=== PATIENT | female | born 1950 | race African-American/Black ===

== ENCOUNTER 2022-07-15 08:36 | Inpatient (IN) | payer BC ==
[2022-07-15] VITALS (12 sets, daily range): BP systolic 73–174; BP diastolic 45–71
[~2022-07-15] VITALS: Ht 162.6 cm; Wt 82.1 kg
--- NOTE | 2022-07-15 08:48 | NUR ---
REVIEWED PATIENT STATUS WITH DR. RUFUS BRADEN; CONSENUS TO PLACED PATIENT ON BIPAP TO MASK WITH SETTINGS NOTED; ABG AT OR AFTER 1 HOUR
[2022-07-15] MEDS ORDERED: FUROSEMIDE 40 MG/4 ML VIAL IVP ONE (09:00)
--- NOTE | 2022-07-15 09:23 | NUR ---
SWABS COLLECTED AND WALKED TO LAB.
--- NOTE | 2022-07-15 09:30 | NUR ---
# 16 FR Stephenson catheter with 10 ml utilizing sterile technique. Immediate return of 0 ml urine NOTED. Bedside drainage bag placed below level of bladder. Pt tolerated procedure well. Dr Watkins made aware.
[2022-07-15 09:33] LABS: BASOPHILS % (AUTO) 0.4 % (0.0-2.0); HEMATOCRIT 32.2 % (36-48); HEMOGLOBIN 10.6 g/dL (12.0-16.0); LYMPHOCYTES # (AUTO) 0.3 K/uL (2.5-16.5); MEAN CORPUSCULAR HEMOGLOBIN 30 pg (27-31); MEAN CORPUSCULAR HGB CONC 33 g/dL (33-37); MEAN CORPUSCULAR VOLUME 91.9 fL (80-94); MONOCYTES # (AUTO) 0.6 K/uL (0.8-1.0); MONOCYTES % (AUTO) 7.3 % (1.7-9.3); NEUTROPHILS # (AUTO) 7.9 K/uL (1.8-7.7); PLATELET COUNT (AUTO) 51 K/uL (140-450); RED CELL DISTRIBUTION WIDTH 18.1 % (11.6-13.7); WHITE BLOOD COUNT (AUTO) 8.9 K/uL (4.8-10.8)
[2022-07-15] MEDS ORDERED: NOREPINEPHRINE 4 MG/4 ML VIAL IV ONE (09:33)
--- NOTE | 2022-07-15 09:44 | NUR ---
72F ADAMA FROM [facility] EXTENDED CARE FOR ALOC X2DAYS. PER EMS, STAFF NOTED PT HAD INCREASED ALOC AND SOB THIS MORNING. ON ARRIVAL, LABORED BREATHING, GENERALIZED EDEMA +3 NOTED UPON ASSESSMENT. PT DIFFICULT TO AROUSE. PT PLACED ON BEDSIDE VEGETABLE SPECKER. DR BRADEN AND RT NOTIFIED OF PT'S PRESENTATION.
[2022-07-15 09:45] LABS: LYMPHOCYTES % (AUTO) 3.1 % (20.5-51.1); NEUTROPHILS % (AUTO) 89.2 % (42.2-75.2)
[2022-07-15] MEDS ORDERED: NACL 0.9% 500 ML IV ONE ×2 (09:45→11:00)
[2022-07-15 09:52] LABS: ALBUMIN 2.7 g/dL (3.4-5.0); ANION GAP 20.5 (8-16); ASPARTATE AMINOTRANSFERASE 42 U/L (15-37); CARBON DIOXIDE 20.9 mmol/L (21-32); CHLORIDE 113 mmol/L (98-107); CREATININE 3.5 mg/dL (0.6-1.3); GLUCOSE 176 mg/dL (74-106); POTASSIUM 5.4 mmol/L (3.5-5.1); SODIUM SERUM 149 mmol/L (136-145); TOTAL BILIRUBIN 1.2 mg/dL (0.0-1.0)
[2022-07-15 09:54] LABS: LIPASE 208 U/L (73-393)
[2022-07-15 09:59] LABS: UREA NITROGEN, BLOOD 109 mg/dL (7-18)
[2022-07-15] MEDS ORDERED: cefTRIAXone 1,000 MG VIAL ONE (10:04)
[2022-07-15] MEDS ORDERED: CALCIUM CHLORIDE 10% 100 MG/ML SYR IVP ONE (10:10)
--- NOTE | 2022-07-15 10:17 | NUR ---
0ML OF URINE OUTPUT NOTED IN NEGRETE BAG. MADE AWARE. PT ON BI PAP REPOSITION FOR COMFORT.
[2022-07-15] MEDS ORDERED: INTUBATION KIT MC ONE (10:26)
[2022-07-15] MEDS ORDERED: ROCURONIUM 50 MG/5 ML VIAL IV ONE (10:30)
[2022-07-15] MEDS ORDERED: ETOMIDATE 20 MG/10 ML VIAL IVP ONE (10:30)
[2022-07-15] MEDS ORDERED: SODIUM BICARBONATE 8.4% PFS 50 MEQ/50 ML SYR IVP ONE (10:30)
[2022-07-15] MEDS ORDERED: PROPOFOL 1000 MG/100 ML PREMIX 100 ML IV ONE (10:30)
--- NOTE | 2022-07-15 10:30 | NUR ---
Radha JONES RCP AND Ruth DICKERSON RCP CALLED TO ER-10 BEDSIDE FOR PATIENT INTUBATION
--- NOTE | 2022-07-15 10:38 | NUR ---
INTUBATION PREP COMPLETED
[2022-07-15] MEDS ORDERED: ATROPINE 1 MG/10 ML SYR IVP ONE ×2 (10:52→12:03)
--- NOTE | 2022-07-15 10:58 | NUR ---
USING A GLIDESCOPE PATIENT SUCCESSFULLY INTUBATED BY DR. RUFUS VILLARREAL; VOCAL CHORDS VISUALIZED; ENDOTRACHEAL TUBE (ETT) #8.0 INSERTED; CUFF INFLATED WITH 8CC AIR VIA 10CC SYRINGE; ETT PLACEMENT CONFIRMATION VIA ETCO2 DETECTOR - YELLOW; AUSCULTATION BY PHIL TO BILATERAL LUNG BANKS APEX TO MID; GOOD CHEST RISE; ETT SECURED AT 21cm TEETH/GUM LINE WITH ANCHOR FAST; CHEST XRAY TO FOLLOW
--- NOTE | 2022-07-15 11:00 | NUR ---
1051-DR BRADEN, MYSELF, KYLE/GAETANO, RT, AT BEDSIDE FOR INTUBATION 1055-ETOMIDATE ADMIN 1055-ROCURONIUM ADMIN 1058-PT INTUBATED. ET TUBE 8.0 AT 23'' AT THE TEETH. + COLOR CHANGE AND BREATH SOUNDS.
--- NOTE | 2022-07-15 11:05 | NUR ---
POST INTUBATION PLACED ON A [employer] R860 VENTILATOR PLUGGED INTO RED OUTLET TOLERATING WELL WITHOUT COMPLICATIONS NOTED TO AN ENDOTRACHEAL TUBE #8.0 SECURED AT 21cm TEETH/GUM LINE WITH AN ANCHOR FAST CUFF PRESSURE CHECKED NOTED AMBU BAG AT BEDSIDE SEDATED GOOD CHEST RISE COUNTRY MANAGER TO OBTAIN SPUTUM FOR VAP PROTOCOL
--- NOTE | 2022-07-15 11:18 | NUR ---
PATIENT UNABLE TO MAINTAIN PEAK PRESSURE LESS THAN 40 cmH2O; NOW AT+[id number]; CHANGED MODE TO PRESSURE CONTROL NOTED; PEAK PRESSURE DESCENDING NOW AT [id number]; ENDOTRACHEAL SUCTION FOR MODERATE THIN BEIGE/HAZY SECRETIONS AIRWAY PATENT
[2022-07-15] MEDS ORDERED: NOREPINEPHRINE 4 MG in DEXTROSE 5% 250 ML IV ONE (11:20)
[2022-07-15] MEDS ORDERED: FURO40TA9 PO (11:33)
[2022-07-15] MEDS ORDERED: CARV25TA2 PO (11:33)
[2022-07-15] MEDS ORDERED: INSU100I51 SUBQ (11:33)
[2022-07-15] MEDS ORDERED: ATOR40TA40 PO (11:33)
[2022-07-15] MEDS ORDERED: POTA10TA81 PO (11:33)
[2022-07-15] MEDS ORDERED: HYDR-4421 PO (11:33)
--- NOTE | 2022-07-15 11:46 | NUR ---
Patient will be admitted to care of Dr. Mccracken. Admited to ICU. Will go to room ICU 1. Belongings list completed. Report to MARCELINO Field.
--- NOTE | 2022-07-15 12:05 | NUR ---
PATIENT ARRIVED FROM ED VIA GURNEY. LEVOPHED INFUSING LEFT AC AT 2MCG/MIN, PROPOFOL AT 5 MCG/KG/MIN LEFT HAND. ATTACHED TO POWER TRUCK DRIVER READING SINUS BRADYCARDIA HR 44-48, BP 141/72 RR 20 SA02 97%, PATIENT NON RESPONSIVE TO PAINFUL STIMULI, PUPILS 2/1 SLUGGISH TO LIGHT, NO COUGH NO GAG REFLEX. SKIN COOL, TEMP 85 DEGREE TEMPORAL ARTERY. APPLIED HEATING BLANKET AFTER COMPLETED BASELINE ASSESSMENT. BASELINE ASSESSMENT COMPLETED.
[2022-07-15] MEDS ORDERED: ATROPINE 0.4 MG/ML VIAL IVP PRN (12:10)
--- NOTE | 2022-07-15 12:30 | NUR ---
RECEIVED ORDERS FROM DR ESTELLE MD AT BEDSIDE EVALUATING PATIENT AFTER PATIENT ARRIVAL FROM ED.
--- NOTE | 2022-07-15 12:35 | NUR ---
STOPPED LEVOPHED AND STOPPED PROPOFOL
--- NOTE | 2022-07-15 13:00 | NUR ---
RECIEVED ORDERS FROM DR CHRISTOPHER, INCLUDING X1 NS BOLUS 1000ML STAT
[2022-07-15] MEDS ORDERED: NACL 0.9% 1,000 ML IV SCH (13:40)
[2022-07-15] MEDS ORDERED: NACL 0.9% 500 ML IV SCH (13:40)
[2022-07-15] MEDS: PIPERACILLIN/TAZOBACTAM 2.25 GM in DEXTROSE 5% 50 ML IV SCH ×2 (13:52→21:38)
--- NOTE | 2022-07-15 13:53 | NUR ---
SEDATED GOOD CHEST RISE ENDOTRACHEAL SUCTION FOR SMALL THIN BEIGE/HAZY SECRETIONS AIRWAY PATENT MANAGER HEAVY DUTY TO OBTAIN HHN THERAPY FOR PULMONARY PATENCY AND MOBILIZATION OF SECRETIONS
--- NOTE | 2022-07-15 14:00 | NUR ---
PATIENT REMAINS NON RESPONSIVE TO PAINFUL STIMULI, NO COUGH, NO GAG, PATIENT MOVES HEAD SLIGHTLY SIDE TO SIDE UPON STIMULI.
[2022-07-15] MEDS ORDERED: SODIUM ZIRCONIUM CYCLOSILICATE 10 GM POWD.PACK PO SCH (14:06)
--- NOTE | 2022-07-15 14:07 | NUR ---
FAMILY AT BEDSIDE, WAITING FOR DAUGHTER TO ARRIVE.
--- NOTE | 2022-07-15 14:10 | NUR ---
DR MCCOY AT BEDSIDE UPDATED FAMILY ON PATIENTS CURRENT CONDITION AND PLAN OF CARE.
--- NOTE | 2022-07-15 15:55 | NUR ---
DR CHRISTOPHER CALLED FOR UPDATE VIA TELEPHONE, REQUESTING ABG STAT, NOTIFIED RT
[2022-07-15] MEDS: ALBUTEROL SULFATE/IPRATROPIU 3 ML SOL IH PRN (16:10)
--- NOTE | 2022-07-15 16:23 | NUR ---
CALLED DR. WU CHRISTOPHER AT [facility] ER PULMONARY [facility] AT TO REVIEW ABG RESULTS VENUS/EXCHANGE TO PAGE FOREMENTIONED MD PATIENT INFORMATION AND CALL BACK NUMBER GIVEN
--- NOTE | 2022-07-15 16:26 | NUR ---
CALL BACK FROM DR. WU CHRISTOPHER REVIEWED ABG RESULTS AND CURRENT VENTILATOR SETTINGS PENNY CHRISTOPHER: PC 28 RATE 18; KEEP SATURATION GREATER THAN 92%; ABG AM 07/16/22 AT 0800 Addendum: 07/15/22 at 1700 by Jakob Hernandez RT ADVISED MD OF ABG SATURATION 89.9% AND MONITOR SATURATION 98%
--- NOTE | 2022-07-15 16:53 | NUR ---
PER PENNY CHRISTOPHER; DECREASED Pinsp 28; DECREASED RATE TO 18 BPM; GOOD CHEST RISE ENDOTRACHEAL SUCTION FOR SMALL THIN YELLOW SECRETIONS AIRWAY PATENT
[2022-07-15] MEDS ORDERED: SODIUM ZIRCONIUM CYCLOSILICATE 10 GM POWD.PACK ONE (18:07)
--- NOTE | 2022-07-15 18:35 | NUR ---
PATIENT AWAKE, UNABLE TO FOLLOW COMMANDS, MOVING HEAD, BITING ETT. STARTING VERSED AND FENTANYL PER MD ORDERS.
[2022-07-15] MEDS: fentaNYL citrate 1 MG in NACL 0.9% 80 ML IV PRN (18:48)
[2022-07-15] MEDS: MIDAZOLAM MDV 50 MG in NACL 0.9% 40 ML IV PRN (18:50)
--- NOTE | 2022-07-15 18:50 | NUR ---
X1 LARGE LOOSE, PERICARE, CATHETER CARE AND SKIN CARE PROVIDED.
[2022-07-15] MEDS ORDERED: ALBUTEROL SULFATE/IPRATROPIU 3 ML SOL IH SCH (19:00)
[2022-07-15] MEDS: ALBUTEROL SULFATE/IPRATROPIU 3 ML SOL IH SCH (19:00)
--- NOTE | 2022-07-15 19:27 | NUR ---
REPORT GIVEN TO FAZAL BENSON HOME AIDE
--- NOTE | 2022-07-15 19:30 | NUR ---
TRANSFER OF CARE FROM [facility]; REPORT RECEIVED FROM SADE Flores (MARCELINO). PATIENT ADMITTED FROM ER. RECEIVED PATIENT IN BED, INTUBATED AND SEDATED. CURRENT VENT SETTINGS, AC/PC, FIO2 = 35%, RATE = 18, PEEP = 5. VERSED 1MG AND FENTANYL 0.5MCG/MIN INFUSING IN LEFT HAND 20G PERIPHERAL LINE. PATIENT HAS OG TUBE IN PLACE AND REMAINS NPO. PATIENT HAS NEGRETE CATHETER IN PLACE. CURRENT VITALS AT TIME OF TRANSFER OF CARE: HR = 64, O2 = 96%, BP = 101/45, R = 18.
--- NOTE | 2022-07-15 21:04 | NUR ---
MESSAGE TO DR ZAMBRANO, PATIENT IS RECEIVING IV FENTANYL AND VERSED; ONLY HAS A PERIPHERAL LINE. REQUESTING ORDER TO GET CENTRAL LINE FOR PATIENT PATIENT IS A MODIFIED CODE, ONLY ACLS DRUGS, AND RE-INTUBATTION. CURRENT BP 93/48, MAP (64)
--- NOTE | 2022-07-15 21:13 | NUR ---
CALL FROM MD, PROVIDED VERBAL UPDATE ON PATIENT STATUS, VERBAL OKAY TO ORDER PICC LINE, VERBAL ORDER FOR LEVOPHED (QUADRUPLE) TO BE USED PRN TO MAINTAIN MAP >65
[2022-07-15] MEDS ORDERED: NOREPINEPHRINE 16 MG in DEXTROSE 5% 250 ML IV PRN (21:15)
--- NOTE | 2022-07-15 22:08 | NUR ---
CALL PLACED TO PATIENT'S DTR PRECIOUS CARRIZALES ([phone]), NEED CONSENT TO PICC LINE PLACEMENT. NO ANSWER, UNABLE TO LEAVE A MESSAGE; VOICEMAIL IS FULL
--- NOTE | 2022-07-15 22:13 | NUR ---
RECEIVED CALL BACK FROM PATIENT'S DTR WHO GAVE VERBAL CONSENT FOR PICC LINE, VERBAL CONSENT WITNESSED BY MELINA Gifford ([facility])
--- NOTE | 2022-07-15 22:20 | NUR ---
[facility]. NEED TO CONSULT WITH NEPHROLOGY (CARTER MCCOY MD) TO GET OKAY TO INSERT LINE Addendum: 07/16/22 at 0224 by Lina Ovalle RN DR. MCCOY = NEPHROLOGY
--- NOTE | 2022-07-15 23:26 | NUR ---
MESSAGE SENT TO DR. CARTER MCCOY (NEPHROLOGY), TO GET OKAY TO INSERT PICC LINE. OKAY TO INSERT PER DR. MCCOY
[2022-07-16] VITALS (25 sets, daily range): BP systolic 11–156; BP diastolic 6–73
--- NOTE | 2022-07-16 00:50 | NUR ---
GHULAM (RN) AT BEDSIDE, PICC LINE PLACED IN BETHANY. STAT CHEST XRAY ORDERED TO CHECK PLACEMENT. CHEST XRAY REVIEWED BY ALEX. JARA. ESTEFANI TO USE PICC LINE
[2022-07-16] MEDS: ALBUTEROL SULFATE/IPRATROPIU 3 ML SOL IH SCH ×4 (01:00→18:49)
[2022-07-16] MEDS ORDERED: NOREPINEPHRINE 4 MG/4 ML VIAL IV ONE (01:38)
--- NOTE | 2022-07-16 01:54 | NUR ---
LEVOPHED STARTED. BP 90/49
[2022-07-16] MEDS: PIPERACILLIN/TAZOBACTAM 2.25 GM in DEXTROSE 5% 50 ML IV SCH ×3 (05:20→21:00)
[2022-07-16 05:48] LABS: EOSINOPHILS % (AUTO) 0.1 % (0.0-4.0); HEMATOCRIT 27.6 % (36-48); HEMOGLOBIN 9.3 g/dL (12.0-16.0); LYMPHOCYTES # (AUTO) 0.7 K/uL (2.5-16.5); LYMPHOCYTES % (AUTO) 7.3 % (20.5-51.1); MEAN CORPUSCULAR HEMOGLOBIN 31 pg (27-31); MEAN CORPUSCULAR HGB CONC 34 g/dL (33-37); MEAN CORPUSCULAR VOLUME 91.4 fL (80-94); MONOCYTES # (AUTO) 0.9 K/uL (0.8-1.0); MONOCYTES % (AUTO) 8.4 % (1.7-9.3); NEUTROPHILS # (AUTO) 8.6 K/uL (1.8-7.7); NEUTROPHILS % (AUTO) 84.2 % (42.2-75.2); PLATELET COUNT (AUTO) 54 K/uL (140-450); RED BLOOD CELL COUNT(AUTO) 3.02 MIL/uL (4.20-5.40); RED CELL DISTRIBUTION WIDTH 17.4 % (11.6-13.7); WHITE BLOOD COUNT (AUTO) 10.2 K/uL (4.8-10.8)
[2022-07-16 06:48] LABS: ANION GAP 19.8 (8-16); CHLORIDE 116 mmol/L (98-107); CREATININE 3.8 mg/dL (0.6-1.3); GLUCOSE 138 mg/dL (74-106); POTASSIUM 4.8 mmol/L (3.5-5.1); SODIUM SERUM 152 mmol/L (136-145)
[2022-07-16 06:51] LABS: UREA NITROGEN, BLOOD 111 mg/dL (7-18)
--- NOTE | 2022-07-16 07:21 | NUR ---
TRANSFER OF CARE TO [facility], REPORT GIVEN TO MARCELINO OREILLY
--- NOTE | 2022-07-16 07:30 | NUR ---
RECEIVED PATIENT FROM NIGHT MARCELINO DIEHL, INTUBATED SIZE 8 ETT, TO VENT. AC/PC RATE 18, 35% O2, +5, NPO, OGT CLAMPED. LEVOPHED AT 2 MCG/MINUTE, VERSED 1 MG/HR, FENTANYL 0.5 MCG/KG/HR (100 KG.BODY WEIGHT). HIGH CREATININE. NO URINE OUTPUT. GENERALIZED EDEMA. PT.GRIMACES TO SUCTIONING.
[2022-07-16] MEDS ORDERED: DEXTROSE 50% 50 ML SYR IVP PRN (08:20)
[2022-07-16] MEDS ORDERED: MAG SULF 2000 MG/WATER PREMIX 50 ML IV PRN (08:20)
[2022-07-16] MEDS ORDERED: POTASSIUM CHLORIDE 10 MEQ TABER PO PRN (08:20)
--- NOTE | 2022-07-16 08:35 | NUR ---
PT. WITH LOW EJ SCALE AT HIGH RISK, CONTINUE TO FOLLOW PRESSURE INJURY PREVENTION INTERVENTIONS. -POSITIONING: TURN AND REPOSITION PATIENT Q 2H OR SOONER USE PILLOWS TO KEEP BONY PROMINENCES FROM DIRECT CONTACT WITH SURFACES USE REPOSITIONING WEDGES TO PROVIDE 30-DEGREE ANGLE FOR SIDE LYING POSITIONS OFFLOADING OR FOAM DRESSING TO ALL TUBING TO PREVENT MEDICAL DEVICES RELATED PRESSURE INJURY -RE-EVALUATING AND MANAGING INCONTINENCE MONITOR SKIN CONDITION DURING POSITION CHANGE DO NOT MASSAGE REDNESS, BONY PROMINENCES FREQUENT VIDHI-CARE AND PROVIDE BARRIER CREAMS PRN IF SOILING MOISTURE CONTROL BY OFFER BED CALVO/URINAL /ABSORBENT PAD TO WICK AND HOLD MOISTURE KEEP SKIN DRY AND PROTECT FROM FRICTION -MANAGE FRICTION/SHEAR/MOBILITY KEEP HOB AT THE LOWEST LEVEL OF ELEVATION NO MORE THAN 30 DEGREE UNLESS OTHERWISE CONTRAINDICATED USE LIFT SHEET OR TRANSFER DEVICE TO MOVE PATIENT AND PREVENT LATERAL SHEER. PROTECT HEELS, ELBOWS BONY PROMINENCES WITH SKIN BERRIES OR FOAM DRESSING IF EXPOSED TO FRICTION OFFLOAD BILATERAL HEELS BY PLACING PILLOWS UNDER CALVES AT ALL TIMES, UNLESS OTHERWISE CONTRAINDICATED -PRESSURE REDISTRIBUTION SURFACE THERAPY JAG ISOFLEX MATTRESS -NUTRITION: PLEASE FOLLOW RD RECOMMENDATIONS AND OFFER NUTRITION SUPPLEMENTS IF ORDERED. PLEASE CONTACT WOUND CARE NURSE FOR ANY QUESTION AND CHANGE OF WOUND CONDITION.
--- NOTE | 2022-07-16 08:58 | NUR ---
PATIENT HAS BEEN SCREENED AND CATEGORIZED HIGH NUTRITION RISK. PATIENT WILL BE SEEN WITHIN 1-2 DAYS OF ADMISSION. 07/15/22-07/17/[address]
[2022-07-16] MEDS: FAMOTIDINE 20 MG/2 ML VIAL IV SCH (09:42)
--- NOTE | 2022-07-16 11:00 | NUR ---
DR. HDZ (RENAL) CAME CAREGIVER AT THE BEDSIDE. MD TALKED TO DAUGHTER ON THE PHONE AND EXPLAINED THAT CREATININE IS HIGH, NEEDS DIALYSIS. DAUGHTER STILL WANTS DIALYSIS EVEN WITH THE DNR, NO COMPRESSION, OKAY FOR ACLS DRUGS DONE. TELEPHONE CONSENT OBTAINED FROM DAUGHTER WITH ANOTHER RN (FROM L&D) QUAN. KYLE GALLOWAY WAS INFORMED BY DR. HDZ. INFORMED DR. VELASQUEZ, THAT HAS PHONE CONSENT FROM DAUGHTER FOR HD CATHETER INSERTION. HD RN ALEIDA WHO WAS IN THE ICU, WAS INFORMED OF THE HD ORDER.
--- NOTE | 2022-07-16 11:30 | NUR ---
DR. ZAMBRANO WAS INFORMED OF THE HIGH TSH, NO MEDICATION ORDERED, WHO ASKED FOR T4, INFORMED NOTHING WAS DONE.
--- NOTE | 2022-07-16 11:35 | NUR ---
DR. CHRISTOPHER CAME ([facility]) SPOKE WITH PATIENT'S DAUGHTER ON THE PHONE, DAUGHTER WANTS TO BE TRANSFERRED TO [facility], SINCE SHE KNOWS A CAMPAIGN ANALYST IN . [place] [facility] [phone] CHRISTOPHER ABOUT THE WISH OF THE DAUGHTER. DR. CHRISTOPHER NOTED ABOUT THE CT HEAD WITHOUT CONTRAST DONE TODAY.
--- NOTE | 2022-07-16 11:41 | NUR ---
DC PLANN[age] YRS OLD FEMALE PATIENT WAS ADMITTED FROM [facility] WITH A DX OF METABOLIC ENCEPHALOPATHY. PATIENT HAS A HX OF CHF,, HTN, DM HLD, PULMONARY EDEMA. CXR SHOWED CARDIOMEGALY WITH BILATERAL EDEMA/INFILTRATES. RAPID COVID TEST NEGATIVE. INTUBATED SEDATED, FIO2 35% SATING 100% ON FENTANYL, LEVOPHED AND VERSED DRIP, IV ABX ZOSYN. SEEN BY CHILDCARE WORKER DR MCCOY NO URGENT REQUIREMENT FOR HD. DC PLAN PER PATIENT RESPOND TO THE TREATMENT. CM TO FOLLOW Addendum: 07/16/22 at 1153 by Debra Marsh RN DC PLANNING: RECEIVED A CALL FROM DR CHRISTOPHER ([facility]) ORDERED PER PT'S DAUGHTER REQUEST TO TRANSFER PATIENT TO [facility]. FAXED THE FAMILY REQUEST TO [facility] AT [phone]. CM TO FOLLOW Addendum: 07/16/22 at 1552 by Debra Marsh RN DC PLANNING: CALLED [facility] [phone] SPOKE WITH DOLLY GUILLEN PT'S CLINICAL PER DOLLY, THEY ARE AT THEIR AT CAPACITY WILL REVIEW AND CALL BACK. CM TO FOLLOW Addendum: 07/24/22 at 1139 by Debra Marsh RN DC PLANNING RECEIVED A CALL FROM PT'S DAUGHTER PRECIOUS REQUESTED PATIENT TO BE TRANSFERRED TO [facility]. CM EXPLAINED THAT [facility] DECLINED THE REQUEST, PRECIOUS INSISTED THAT HER PCP IS THERE AND WILL HELP. FAXED TO [facility]. CM TO FOLLOW Addendum: 07/25/22 at 1218 by Debra Marsh RN DC PLANNING: RECEIVED A CALL FROM [facility] SPOKE WITH CASANDRA STATED THEY ARE AT THEIR CAPACITY NOT ACCEPTING ANY PATIENT AT THIS TIME. CALLED [facility] TRANSFER CENTER [phone] SPOKE WITH JOSS STATED THEY ARE EXTREMELY BUSY ON THEIR WAITING LIST AND CAN NOT ACCEPT AND TRANSFER AT THIS TIME. CALLED ANITHALENNIE PT'S DAUGHTER EXPLAINED THE SITUATION, SHE STATED SHE SPOKE WITH CM NAME MASHA TAN TOLD HER SHE IS ON THE WAITING LIST CM ENCOURAGED HER TO CALL THE TRANSFER CENTER AND PT'S PCP WHO WORKS AT [facility]. CM TO FOLLOW
[2022-07-16] MEDS: BLOOD GLUCOSE MONITORING 1 DEV DEV FS SCH ×3 (11:59→21:00)
--- NOTE | 2022-07-16 12:08 | NUR ---
07/16/2022 RD INITIAL ASSESSMENT COMPLETED. PLEASE REFER TO NUTRITION ASSESSMENT UNDER CARE ACTIVITY FOR ESTIMATED NUTRITIONAL NEEDS. 1.WHEN/IF MEDICALLY APPROPRIATE, RECOMMEND NEPRO WITH CARBSTEADY WITH A GOAL RATE OF 40ML/HR -FWF 240 ML Q6H -START AT 10 ML/HR AND INCREASE BY 10ML Q4H UNTIL GOAL RATE IS REACHED PT TOLERATES. THIS WILL PROVIDE 1728 KCAL, 78 GRAMS OF PROTEIN, AND 960 ML VOLUME (700 ML FREE WATER), MEETING 100% OF ESTIMATED ENERGY NEEDS; ADEQUATE. 2.MONITOR GASTRIC RESIDUALS 3.RD TO FOLLOW-UP IN 2-3 DAYS PATIENT IS HIGH RISK. PAULO DUKE RD
[2022-07-16] MEDS: fentaNYL citrate 1 MG in NACL 0.9% 80 ML IV PRN (13:30)
--- NOTE | 2022-07-16 13:45 | NUR ---
STATUS POST RIGHT IJ HEMODIALYSIS CATHETER PLACEMENT DONE BY KYLE GALLOWAY UNDER LOCAL ANESTHESIA ON RIGHT JUGULAR VEIN UNDER ULTRASOUND-GUIDED (VASCULAR ACCESS). HEPARIN 5,000 UNITS ONLY (NOT 10,000 UNITS) ON 2 PORTS OF THE MAHURKAR CATHETER. CHEST X-RAY DONE FOR LINE CONFIRMATION. ONCE CONFIRMED, FOR HEMODIALYSIS. Addendum: 07/16/22 at 1423 by Agency Nurse 22, RN RN PT.WAS AT VERSED 1 MG/HR., PT. WAS MOVING ARMS, AND HEAD, DR. VELASQUEZ ORDERED TO BOLUS 2 MG IV VERSED STAT, STILL WIGGLINGI IN BED, DR. VELASQUEZ ORDERED ANOTHER 2 MG IV BOLUS X 1 NOW, INCREASED GRADUALLY THE VERSED DRIP FROM 1 TO 3 TO 5, 7, THEN 9, THEN 10 MG/HR. BP SUPPORTED BY LEVO GTT.
--- NOTE | 2022-07-16 14:50 | NUR ---
TUBE FEEDING MESSAGED DR. ZAMBRANO, AND CALLED HER UP, OKAYED ON THE RECOMMENDATION OF FNS TO START TUBE FEEDING NEPRO 40 MLS/HR (GOAL) INCREASE BY 10 MALS. Q 4HRS. UP TO GOAL, PLUS FREE WATER FLUSH 240 MLS. Q6 HRS.
--- NOTE | 2022-07-16 17:23 | NUR ---
DAUGHTER WANTS TRANSFER TO [facility] DR. CHRISTOPHER CALLED UP AND SAID THAT THE ARMATURE WINDER INFORMED HER THAT THERE IS NO AVAILABLE BED FOR THE PATIENT IN [facility] WHERE THE PATIENT'S DAUGHTER WISHED THE PATIENT TO BE TRANSFERRED TO. Addendum: 07/16/22 at 1933 by Agency Nurse 22, RN RN DR. CHRISTOPHER ASKED ABOUT THE CT HEAD NO CONTRAST RESULT, READ ABOUT THE WHOLE IMPRESSION , INCLUDING RT. OCCIPITAL LOBE, MAY REPRESTN AGE-NDETERMINATE INFARCT, AN MRI WOULD BE HELPFUL FOR EVAL, NO ACUTE INRACRANIAL HEMORRHAGE. NO NEW ORDER.
[2022-07-16] MEDS: MIDAZOLAM MDV 50 MG in NACL 0.9% 40 ML IV PRN (18:36)
--- NOTE | 2022-07-16 19:20 | NUR ---
PT. HANDED OVER TO NIGHT MARCELINO HYDE, INTUBATED, SEDATED, VERSED 1 MG/HR, FENTANYL 0.5 MCG/KG/HR, VERSED 4 MCG/HR, NEPRO 10MLS/HR (G0AL 40MLS/HR)+FREE WATER 240 MLS.Q6 HRS STARTED AT 1800 HRS. HEMODIALYZED 2000 MLS. REMOVED. PENDING T4 RESULT & RELAY TO MD ZAMBRANO.
--- NOTE | 2022-07-16 20:00 | NUR ---
OPENING NOTES PT IS INTUBATED, SEDATED, VERSED 1 MG/HR, FENTANYL 0.5 MCG/KG/HR, VERSED 4 MCG/HR, NEPRO 10MLS/HR (G0AL 40MLS/HR)+FREE WATER 240 MLS.Q6 HRS STARTED AT 1800 HRS. CHECKED WITH NO RESIDUALS. PT HAD HEMODIALYZED TODAY WITH 2000 MLS. REMOVED. PENDING T4 RESULT & RELAY WILL TO MD ZAMBRANO IF ABNORMAL. PT HAS F/C IN PLACE DRAINING TO GRAVITY. ALL SAFETY MEASURE IN PLACE WILL CONTINUE TO MONITOR FOR SAFETY.
--- NOTE | 2022-07-16 22:00 | NUR ---
TUBE FEEDING TUBE FEEDING NEPRO 40 MLS/HR (GOAL) INCREASE BY 15 ML/HR Q 4HRS. UP TO GOAL, PLUS FREE WATER FLUSH 240 MLS. Q6 HRS.
--- NOTE | 2022-07-16 23:00 | NUR ---
BM PT HAS SMALL PASTY GREENISH STOOL
[2022-07-17] VITALS (28 sets, daily range): BP systolic 94–141; BP diastolic 39–97
--- NOTE | 2022-07-17 | NUR ---
TUBE FEEDING TUBE FEEDING NEPRO 40 MLS/HR (GOAL) INCREASE BY 20 ML/HR. PLUS FREE WATER FLUSH 240 MLS. Q6 HRS.
[2022-07-17] MEDS: ALBUTEROL SULFATE/IPRATROPIU 3 ML SOL IH SCH ×4 (00:47→19:33)
--- NOTE | 2022-07-17 02:00 | NUR ---
TUBE FEEDING TUBE FEEDING NEPRO 40 MLS/HR (GOAL) INCREASE BY 25ML/HR PLUS FREE WATER FLUSH 240 MLS. Q6 HRS.
--- NOTE | 2022-07-17 04:00 | NUR ---
TUBE FEEDING TUBE FEEDING NEPRO 40 MLS/HR (GOAL) INCREASE BY 30ML/HR UP TO GOAL, PLUS FREE WATER FLUSH 240 MLS. Q6 HRS.
[2022-07-17] MEDS: PIPERACILLIN/TAZOBACTAM 2.25 GM in DEXTROSE 5% 50 ML IV SCH ×3 (05:00→20:57)
--- NOTE | 2022-07-17 05:00 | NUR ---
BM PT HAD SMALL PASTY GREENISH COLOR STOOL
[2022-07-17 05:34] LABS: BASOPHILS % (AUTO) 0.2 % (0.0-2.0); EOSINOPHILS # (AUTO) 0.1 K/uL (0-0.4); EOSINOPHILS % (AUTO) 0.7 % (0.0-4.0); HEMATOCRIT 29.7 % (36-48); HEMOGLOBIN 9.9 g/dL (12.0-16.0); LYMPHOCYTES # (AUTO) 3.7 K/uL (2.5-16.5); LYMPHOCYTES % (AUTO) 33.2 % (20.5-51.1); MEAN CORPUSCULAR HEMOGLOBIN 30 pg (27-31); MEAN CORPUSCULAR HGB CONC 33 g/dL (33-37); MEAN CORPUSCULAR VOLUME 91.4 fL (80-94); MONOCYTES # (AUTO) 0.6 K/uL (0.8-1.0); MONOCYTES % (AUTO) 4.9 % (1.7-9.3); NEUTROPHILS # (AUTO) 6.9 K/uL (1.8-7.7); PLATELET COUNT (AUTO) 61 K/uL (140-450); RED BLOOD CELL COUNT(AUTO) 3.25 MIL/uL (4.20-5.40); RED CELL DISTRIBUTION WIDTH 17.7 % (11.6-13.7); WHITE BLOOD COUNT (AUTO) 11.3 K/uL (4.8-10.8)
[2022-07-17 05:36] LABS: ANION GAP 15.9 (8-16); CARBON DIOXIDE 25.2 mmol/L (21-32); CHLORIDE 111 mmol/L (98-107); CREATININE 3.3 mg/dL (0.6-1.3); GLUCOSE 148 mg/dL (74-106); POTASSIUM 4.1 mmol/L (3.5-5.1); SODIUM SERUM 148 mmol/L (136-145); UREA NITROGEN, BLOOD 83 mg/dL (7-18)
[2022-07-17 05:46] LABS: MAGNESIUM 2.3 mg/dL (1.8-2.4); PHOSPHORUS 5.4 mg/dL (2.5-4.9)
--- NOTE | 2022-07-17 07:00 | NUR ---
RECEIVED PT ON PC 28,RR18,+5,30%. VENT PLUGGED INTO RED OUTLET, WHEELS LOCKED AND AMBUBAG AT BEDSIDE, ALARMS ARE SET AND AUDIBLE. SATURATION IS 98% ON 30%FIO2. AUSCULTATION: BILATERAL RHONCHI; GREEN SPUTUM SUCTIONED. WILL CONTINUE TO MONITOR.
[2022-07-17] MEDS: FAMOTIDINE 20 MG/2 ML VIAL IV SCH (09:42)
[2022-07-17] MEDS: fentaNYL citrate 1 MG in NACL 0.9% 80 ML IV PRN (11:09)
[2022-07-17] MEDS: CALCIUM ACETATE 667 MG TAB PO SCH ×2 (12:00→17:06)
[2022-07-17] MEDS: BLOOD GLUCOSE MONITORING 1 DEV DEV FS SCH ×2 (12:00→18:08)
--- NOTE | 2022-07-17 14:07 | NUR ---
DC PLANNING SHERRY OUREACHED TO PT DAUGHTER PRECIOUS TO GATHER COLLATERAL INFORMATION. PRECIOUS REPORTS PT WAS ADMITTED TO [facility] FROM [facility] PT WAS IN SKILLED CARE WITH [facility], ADMISSION DATE;06/22/22. PT RECEIVING PT/OT AT FACILITY. PRECIOUS IDENTIFIED HERSELF, AND COLIN BENNETT, SISTER, EMERGENCY CONTACT. PRECIOUS REPORTS PT AT BASELINE WAS VERBAL AND ABLE TO MAKE NEEDS KNOWN OF SATURDAY OF 07/11 HOWEVER SAW PT 2 TIMES FOLLOWING 07/11 AND PT WAS SLEEPING. LEDY REPORTS AT BASELINE PT WAS AMBULATORY AND WOULD WALK SHORT DISTANCES, TYPICALLY TO AND FROM THE BATHROOM. PT REQUIRES ASSISTANCE WITH ADL'S, WHICH CAREGIVER WOULD AID WITH, PREVIOUS TO HER ADMISSION TO [facility]. PRECIOUS REPORTS SHE WOULD LIKE PT TRANSFERRED TO [facility], SHERRY NOTIFIED HER THAT REFERRAL WAS SENT OVER HOWEVER, [facility] DID NOT HAVE ANY OPEN BEDS. PRECIOUS IN UNDERSTANDING AND REPORTS SHE WOULD SPEAK TO HER CONTACT AT THE HOSPITAL. LEDY UNSURE OF WHAT DC PLAN IS AT THIS MOMENT, HOWEVER, REPORTS THAT SHE IS WAITING AND WORKING WITH FAMILY TO AID IN DECISION MAKING. SHERRY PROVIDED ANITHALENNIE WITH DIRECT CONTACT INFORMATION SHOULD SHE REQUIRES ANY ASSISTANCE WITH RESOURCES, PRECIOUS ACCEPTED. Addendum: 07/17/22 at 1408 by Nancy EPPERSON Amended: Links added. Addendum: 07/27/22 at 1531 by Nancy EPPERSON COPY OF PTS [facility] DIRECT[facility] WAS RECEIVED BY DARRYL. SW AND CM OUTREACHED TO PTS DAUGHTER MERLENE TO NOTIFY HER THAT [facility] DIRECTIVE WAS RECEIVED, AND A LEGAL BINDING DOCUMENT THAT DECISION MAKING WOULD BE REFERRED TO NAMING PARTIES LISTED DALIA WU, AND COLIN BENNETT, . LILLIAN AWARE AND IN AGREEMENT. 11:00AM OUTREACHED TO DALIA (ONE OF THE NAMING PARTIES)[phone], HOWEVER , NO ANSWER. A MESSAGE WAS LEFT REQUESTING A RETURN PHONE CALL. SHERRY TO FOLLOW 3:25: SW AND CM FIELDED CALL FROM . DALIA WU WHO REPORTS THAT SHE IS RELINQUISHING ALL DECISION MAKING TO HER SISTER, COLIN BENNETT TO ACT ON HER BEHALF.
[2022-07-17] MEDS: INSULIN LISPRO SLIDING SCALE 100 UNITS/ML VIAL SUBQ PRN (18:09)
--- NOTE | 2022-07-17 19:10 | NUR ---
RECEIVED REPORT FROM SADE BENSON. PT IN STATED CONDITION. SHE'S SEDATED ON .5FENTNYL.05 MCG/KG/H. AND VERSED 1MG/H. PT IS AT A -3 RASS AT THIS TIME. SHECONTINUES ON THE VENTILATOR VIA ETT AND AN OGT ATTACHED TO THE ETT., HER VENT SETTING ARE AC/PC FIO1 28%, RATE 18, AND PEEP 5. NI DISTRESS NOTED. SHE HAS GLUCERNA AT 30CC/H FOLLOWED BY FREE WATER 240CC Q6H. RESIDUAL 20CC. SHE HAS A BETHANY MIDLINE AND A LEFT HAND 20 GUAGE SALINE LOCK. PT'S BOWEL SOUNDS ARE HYPOACTIVE AND SHE HAS NO DISCERNIBLE DOPPLER PULSES IN EITHER FOOT .HER FEET ARE BLACK ON THE TOPN THE RIGHT MORESO THAN THE LEFT.
--- NOTE | 2022-07-17 19:29 | NUR ---
REPORT GIVEN TO NIGHT NURSE
--- NOTE | 2022-07-17 20:30 | NUR ---
DIALYSIS FINISHED AND 2.1LITERS REMOVED
[2022-07-17] MEDS: MIDAZOLAM MDV 50 MG in NACL 0.9% 40 ML IV PRN (21:02)
--- NOTE | 2022-07-17 22:35 | NUR ---
R.T AT BEDSIDE ASSESSING PT , BUT NO VENT CHANGES.
[2022-07-18] VITALS (22 sets, daily range): BP systolic 111–146; BP diastolic 42–99
[2022-07-18] MEDS: BLOOD GLUCOSE MONITORING 1 DEV DEV FS SCH ×4 (00:08→18:00)
[2022-07-18] MEDS: ALBUTEROL SULFATE/IPRATROPIU 3 ML SOL IH SCH ×3 (01:09→12:41)
--- NOTE | 2022-07-18 01:56 | NUR ---
PT DROPS SPO2 INTO THE 80'S NO DISTRESS NOTED R.T INFORMED.
[2022-07-18] MEDS: PIPERACILLIN/TAZOBACTAM 2.25 GM in DEXTROSE 5% 50 ML IV SCH ×3 (05:21→21:11)
[2022-07-18 06:00] LABS: BASOPHILS % (AUTO) 0.2 % (0.0-2.0); EOSINOPHILS % (AUTO) 0.5 % (0.0-4.0); HEMATOCRIT 29.9 % (36-48); HEMOGLOBIN 10.1 g/dL (12.0-16.0); LYMPHOCYTES # (AUTO) 0.8 K/uL (2.5-16.5); LYMPHOCYTES % (AUTO) 9.3 % (20.5-51.1); MEAN CORPUSCULAR HEMOGLOBIN 30 pg (27-31); MEAN CORPUSCULAR HGB CONC 34 g/dL (33-37); MEAN CORPUSCULAR VOLUME 89.6 fL (80-94); MONOCYTES # (AUTO) 0.6 K/uL (0.8-1.0); MONOCYTES % (AUTO) 6.7 % (1.7-9.3); NEUTROPHILS # (AUTO) 7.3 K/uL (1.8-7.7); NEUTROPHILS % (AUTO) 83.3 % (42.2-75.2); PLATELET COUNT (AUTO) 70 K/uL (140-450); RED BLOOD CELL COUNT(AUTO) 3.34 MIL/uL (4.20-5.40); RED CELL DISTRIBUTION WIDTH 17.5 % (11.6-13.7); WHITE BLOOD COUNT (AUTO) 8.8 K/uL (4.8-10.8)
[2022-07-18 06:30] LABS: MAGNESIUM 2.2 mg/dL (1.8-2.4); PHOSPHORUS 4.7 mg/dL (2.5-4.9)
[2022-07-18 06:39] LABS: ANION GAP 5.8 (8-16); CARBON DIOXIDE 24.1 mmol/L (21-32); CHLORIDE 106 mmol/L (98-107); CREATININE 2.9 mg/dL (0.6-1.3); GLUCOSE 137 mg/dL (74-106); POTASSIUM 3.9 mmol/L (3.5-5.1); SODIUM SERUM 132 mmol/L (136-145)
[2022-07-18 06:40] LABS: UREA NITROGEN, BLOOD 64 mg/dL (7-18)
--- NOTE | 2022-07-18 07:15 | NUR ---
RECEIVED PT ON PC 28,RR18,+5, 28% FIO2. WHEELS ARE LOCKED, VENT PLUGGED INTO RED OUTLET, AMBUBAG AT BEDSIDE, ALARMS ARE SET AND AUDIBLE. PT RESTING. WILL CONTINUE TO MONITOR.
--- NOTE | 2022-07-18 07:30 | NUR ---
RECEIVED REPORT FROM RFP WRITER
--- NOTE | 2022-07-18 08:00 | NUR ---
BASELINE ASSESSMENT COMPLETED
--- NOTE | 2022-07-18 08:40 | NUR ---
FAMILY AT BEDSIDE VISITING.
[2022-07-18] MEDS: CALCIUM ACETATE 667 MG TAB PO SCH ×3 (08:42→17:48)
[2022-07-18] MEDS: FAMOTIDINE 20 MG/2 ML VIAL IV SCH (08:42)
--- NOTE | 2022-07-18 10:00 | NUR ---
TURNING PATIENT EVERY 2 HOURS AND COMPLETING ORAL CARE.
--- NOTE | 2022-07-18 11:35 | NUR ---
DIETARY AT BEDSIDE, MADE RECOMMENDATIONS FOR DIET CHANGE. ORDERS PLACED IN COMPUTER.
--- NOTE | 2022-07-18 11:37 | NUR ---
30 MIN CPAP TRIAL ON PT FOR 30 MINUTES. 15/5. PT VOLUME RANGE FROM 330 TO 475. PEAK PRESSURE WAS IN THE LOW 20S. RESPIRATORY RATE STAYED CONSISTENT AT 18 BPM. RSBI 47. PT RETURNED TO PREVIOUS VENT SETTING OF PC 28,RR18,+5, 28%. WILL CONTINUE TO MONITOR.
--- NOTE | 2022-07-18 11:40 | NUR ---
07/18/22 RD FOLLOW UP COMPLETED PLEASE REFER TO NUTRITION ASSESSMENT UNDER CARE ACTIVITY FOR ESTIMATED NUTRITIONAL NEEDS. 1. RECOMMEND INCREASING NEPRO 1.8 TO 40ML/HR TOLERATED -FWF: 150ML Q8H OR PER MD -WILL PROVIDE 1728 KCAL AND 78 GRAMS OF PROTEIN, MEETING 100% OF ESTIMATED ENERGY NEEDS; ADEQUATE. 2. MONITOR GI SYMPTOMS AND NUTRITION-RELATED LAB VALUES 3. RD TO FOLLOW-UP IN 3-5 DAYS PATIENT IS MODERATE RISK. CHRISTIAN TALBERT RD
--- NOTE | 2022-07-18 12:00 | NUR ---
NO CHANGE IN BASELINE ASSESSMENT. PATIENT REMAINS SEDATED FOR RASS -1 CONTINUE CLOSE MONITORING.
--- NOTE | 2022-07-18 12:00 | NUR ---
INCREASED RATE OF NEPRO TO 40 ML/HR WITH H20 150ML Q8 HOURS ORDERED
--- NOTE | 2022-07-18 14:40 | NUR ---
DAUGHTER, PRECIOUS, IS AT BEDSIDE. UPDATED ON PATIENTS CONDITION. SHE STATES SHE WANTS PATIENT TRANSFERRED TO [facility] FOR SECOND OPINION. NOTIFIED TECHNICAL WRITING LEAD/MGR FOR POSSIBLE TRANSFER.
--- NOTE | 2022-07-18 19:14 | NUR ---
REPORT GIVEN TO VICENTA BENSON
--- NOTE | 2022-07-18 20:00 | NUR ---
REPORT RECEIVED FROM AM SHIFT MARCELINO STUART. A&O X0. PT AROUSABLE TO SHAKING. VENT SETTINGS A/C PC FI02 28 RATE 18 PEEP 5. LUNG SOUNDS CLEAR TO AUSCULTATION. OGT FEED GLUCERNA 1.2CAL 40ML/HR 150ML Q8HR. NEGRETE CATHETER INTACT. SR TO BEDSIDE MONITOR. CONTINUOUS DRIP FENTANYL 0.5 MCG/KG/HR. VERCED 1MG/HR. NO S/SX OF PAIN. FLACC 0.
[2022-07-18] MEDS: INSULIN LISPRO SLIDING SCALE 100 UNITS/ML VIAL SUBQ PRN (23:49)
[2022-07-19] VITALS (19 sets, daily range): BP systolic 108–158; BP diastolic 67–109
[2022-07-19] MEDS: ALBUTEROL SULFATE/IPRATROPIU 3 ML SOL IH SCH ×4 (00:24→19:59)
[2022-07-19] MEDS: PIPERACILLIN/TAZOBACTAM 2.25 GM in DEXTROSE 5% 50 ML IV SCH ×3 (05:21→21:17)
[2022-07-19 05:47] LABS: BASOPHILS % (AUTO) 0.2 % (0.0-2.0); EOSINOPHILS % (AUTO) 0.4 % (0.0-4.0); HEMATOCRIT 28.8 % (36-48); HEMOGLOBIN 9.6 g/dL (12.0-16.0); LYMPHOCYTES # (AUTO) 0.7 K/uL (2.5-16.5); LYMPHOCYTES % (AUTO) 7.3 % (20.5-51.1); MEAN CORPUSCULAR HEMOGLOBIN 30 pg (27-31); MEAN CORPUSCULAR HGB CONC 33 g/dL (33-37); MONOCYTES # (AUTO) 0.6 K/uL (0.8-1.0); NEUTROPHILS # (AUTO) 7.9 K/uL (1.8-7.7); NEUTROPHILS % (AUTO) 85.1 % (42.2-75.2); PLATELET COUNT (AUTO) 55 K/uL (140-450); RED CELL DISTRIBUTION WIDTH 17.7 % (11.6-13.7); WHITE BLOOD COUNT (AUTO) 9.2 K/uL (4.8-10.8)
[2022-07-19] MEDS: BLOOD GLUCOSE MONITORING 1 DEV DEV FS SCH ×4 (06:00→17:25)
[2022-07-19] MEDS: LEVOTHYROXINE 0.025 MG TAB PO SCH (06:00)
[2022-07-19 06:29] LABS: ANION GAP 12.8 (8-16); CARBON DIOXIDE 24.3 mmol/L (21-32); CHLORIDE 107 mmol/L (98-107); CREATININE 3.5 mg/dL (0.6-1.3); GLUCOSE 190 mg/dL (74-106); POTASSIUM 4.1 mmol/L (3.5-5.1); SODIUM SERUM 140 mmol/L (136-145); UREA NITROGEN, BLOOD 70 mg/dL (7-18)
[2022-07-19 06:30] LABS: MAGNESIUM 2.2 mg/dL (1.8-2.4); PHOSPHORUS 4.9 mg/dL (2.5-4.9)
[2022-07-19] MEDS: fentaNYL citrate 1 MG in NACL 0.9% 80 ML IV PRN (07:16)
--- NOTE | 2022-07-19 07:25 | NUR ---
REPORT GIVEN TO AM SHIFT MARCELINO KWANO.
--- NOTE | 2022-07-19 07:30 | NUR ---
RECEIVED REPORT FROM COURT ADMINISTRATOR RN. PT IN BED WITH HOB ELEVATED. FENTANYL 0.5 MCG/KG/H. AND VERSED 1MG/H. -3 RASS AT THIS TIME. VENTILATOR VIA ETT. VENT SETTING ARE AC/PC FIO1 28%, RATE 18, AND PEEP 5. NO DISTRESS NOTED. BETHANY MIDLINE AND A LEFT HAND 20 GUAGE. OGT TO TUBE FEEDING ORDERED. NEGRETE INTACT AND PATENT.
[2022-07-19] MEDS: CALCIUM ACETATE 667 MG TAB PO SCH ×3 (08:47→17:13)
[2022-07-19] MEDS: FAMOTIDINE 20 MG/2 ML VIAL IV SCH (08:48)
--- NOTE | 2022-07-19 09:15 | NUR ---
DUE MEDS GIVEN. ORAL CARE AND NEGRETE CARE DONE. TURNED AND REPOSITIONED
--- NOTE | 2022-07-19 16:00 | NUR ---
HEMODIALYSIS DONE, NO ADVERSE REACTIONS NOTED
--- NOTE | 2022-07-19 17:00 | NUR ---
WITH BM X1, VIDHI CARE DONE, TURNED AND REPOSITIONED
--- NOTE | 2022-07-19 19:15 | NUR ---
TRANSFER OF CARE FROM DAY SHIFT, REPORT RECEIVED FROM EMMANUELLE Moser RN. PATIENT RECEIEVED IN BED, SEDATED, AND INTUBATED. HAS BILATERAL SOFT WRIST RESTRAINTS, TO BE RENEWED AT MIDNIGHT. PATIENT HAS THE FOLLOWING DRIPS INFUSING: VERSED 1MG, FENTANYL 0.5MCG. PATIENT HAS OG TUBE AND HAS NEPHRO RUNNING AT 40ML/HR. HAS PICC LINE, BETHANY, AND KATHRYN CATH, R JUGULAR. CURRENT VENT SETTINGS: AC/PC, FI02 = 28%, RATE = 18, PEEP = 5. CURRENT VITALS: T = 97.1, HR = 72, O2 = 98%, R = 15, BP = 123/88.
[2022-07-20] VITALS (19 sets, daily range): BP systolic 100–168; BP diastolic 64–126
[2022-07-20] MEDS: BLOOD GLUCOSE MONITORING 1 DEV DEV FS SCH ×4 (00:25→18:19)
[2022-07-20] MEDS: MIDAZOLAM IV PRN (00:31)
[2022-07-20] MEDS: DEXTROSE 5% IV PRN (00:31)
[2022-07-20] MEDS: ALBUTEROL SULFATE/IPRATROPIU 3 ML SOL IH SCH ×4 (00:34→19:08)
--- NOTE | 2022-07-20 00:35 | NUR ---
RT AT BEDSIDE
[2022-07-20] MEDS: INSULIN LISPRO SLIDING SCALE 100 UNITS/ML VIAL SUBQ PRN ×2 (00:58→06:52)
[2022-07-20] MEDS ORDERED: fentaNYL citrate 0.05 MG/ML VIAL ONE (02:47)
[2022-07-20] MEDS: fentaNYL citrate 1 MG in NACL 0.9% 80 ML IV PRN (03:41)
[2022-07-20] MEDS: PIPERACILLIN/TAZOBACTAM 2.25 GM in DEXTROSE 5% 50 ML IV SCH ×3 (05:27→21:10)
[2022-07-20 05:45] LABS: BASOPHILS % (AUTO) 0.1 % (0.0-2.0); EOSINOPHILS % (AUTO) 0.2 % (0.0-4.0); HEMATOCRIT 30.1 % (36-48); LYMPHOCYTES # (AUTO) 0.7 K/uL (2.5-16.5); LYMPHOCYTES % (AUTO) 5.8 % (20.5-51.1); MEAN CORPUSCULAR HEMOGLOBIN 30 pg (27-31); MEAN CORPUSCULAR HGB CONC 33 g/dL (33-37); MEAN CORPUSCULAR VOLUME 90.2 fL (80-94); MONOCYTES % (AUTO) 7.5 % (1.7-9.3); NEUTROPHILS # (AUTO) 11.1 K/uL (1.8-7.7); NEUTROPHILS % (AUTO) 86.4 % (42.2-75.2); PLATELET COUNT (AUTO) 54 K/uL (140-450); RED BLOOD CELL COUNT(AUTO) 3.34 MIL/uL (4.20-5.40); RED CELL DISTRIBUTION WIDTH 17.7 % (11.6-13.7); WHITE BLOOD COUNT (AUTO) 12.8 K/uL (4.8-10.8)
[2022-07-20 05:56] LABS: MAGNESIUM 2.1 mg/dL (1.8-2.4); PHOSPHORUS 4.1 mg/dL (2.5-4.9)
[2022-07-20 06:10] LABS: ANION GAP 12.5 (8-16); CARBON DIOXIDE 25.6 mmol/L (21-32); CHLORIDE 106 mmol/L (98-107); CREATININE 2.9 mg/dL (0.6-1.3); GLUCOSE 198 mg/dL (74-106); POTASSIUM 4.1 mmol/L (3.5-5.1); SODIUM SERUM 140 mmol/L (136-145); UREA NITROGEN, BLOOD 53 mg/dL (7-18)
[2022-07-20] MEDS: LEVOTHYROXINE 0.025 MG TAB PO SCH (06:42)
--- NOTE | 2022-07-20 07:23 | NUR ---
TRANSFER OF CARE TO [facility], REPORT GIVEN TO CHAVEZ
[2022-07-20] MEDS: FAMOTIDINE 20 MG/2 ML VIAL IV SCH (07:55)
[2022-07-20] MEDS: CALCIUM ACETATE 667 MG TAB PO SCH ×3 (07:55→17:00)
[2022-07-20] MEDS ORDERED: VECURONIUM 10 MG VIAL IVP ONE (11:25)
--- NOTE | 2022-07-20 11:27 | NUR ---
Dr. duran at bedside switched et tube due to cuff leak and low volumes. IV push 100 rocronium bromide, removed OG tube stopped tube feeds at this time. patient still pulling in low volumes awaiting stat x ray. Notified Dr. Avina no orders gives
--- NOTE | 2022-07-20 11:27 | NUR ---
BEDSIDE AND SWITCHED OUT ETT SAME SIZE PRIOR 8.0 DUE TO LEAK IN DIRECTOR OF WORKFORCE DEVELOPMENT BALLOON AND AUDIBLE LEAK HEARD AROUND INTUBATION SITE. NURSE BEDSIDE.
--- NOTE | 2022-07-20 11:45 | NUR ---
DUE TO LOW VT Pinsp INCREASED TO [id number], PT BREATH SOUNDS COARSE BILATERALLY. ALARMS ON AND FUNCTIONING. NURSE AWARE OF PT STATUS AND VENT CHANGES. WILL CONTINUE TO MONITOR.
[2022-07-20] MEDS ORDERED: ROCURONIUM 50 MG/5 ML VIAL IV ONE (11:55)
[2022-07-20] MEDS: ALBUTEROL SULFATE/IPRATROPIU 3 ML SOL IH PRN (15:42)
--- NOTE | 2022-07-20 19:21 | NUR ---
DR. TURCIOS ORDERED TO GIVE 2 UNITS FFP AND VIT K 5 MG X 1. MARCELINO HENDRIX CHARGED NURSE CALLED PRECIOUS CARRIZALES (DTR) TO GET CONSENT FOR TRANSFUSION. PRECIOUS (DTR) OKAY FOR BLOOD TRANSFUSION AND WITNESSED BY ME. MARCELINO HENDRIX CHARGED NURSE ALSO CLARIFIED ABOUT THE CODE STATUS, DUE TO PT. CODE STATUS NOT CLEAR. PER ORDERED IN THE COMPUTER: RE-INTUBATION (YES) AND ACLS/VASOPRESSOR (YES)., HOWEVER IN THE CHART MARKED X TO " DO NOT RESUSCITATE (DNR), SIGNED BY DAUGHTER: PRECIOUS CARRIZALES AND SIGNED BY . MARCELINO HENDRIX CHARGED NURSE RELATED TO ME WHAT THE DAUGHTER STATED. ACCORDING TO THE DAUGHTER " LONG HER MOM OKAY WITH BREATHING IN THE MACHINE, SHE'S OK. BUT IF ANYTHING WILL HAPPEN TO HER, I DIDN'T WANT TO DISCUSS. IT STRESS ME OUT ENOUGH TO BE TALKING ON THE PHONE WITH SAME ISSUE".
--- NOTE | 2022-07-20 19:25 | NUR ---
RECEIVED PT. FROM DAY SHIFT RNCHAVEZ. DURING OUR RN REPORT (CHANGE OF SHIFT), RT AT THE BEDSIDE DOING EKG. PER REPORT PT. JUST HAD AN EPISODE OF BRADYCARDIA HR IN THE LOW 40'S, THAT'S WHY MD ORDERED EKG. PER REPORT PT. HAD AN EPISODE OF BLEEDING IN THE HERNANDEZ AND DURING SUCTION TO THE ETT. EKG RESULT JUNCTIONAL RHYTHM. TECTED THE COPY OF THE EKG TO DR. IHLL AND HE ORDERED TO CONTINUE TO MONITOR IF BLOOD PRESSURE STABLE.
--- NOTE | 2022-07-20 19:30 | NUR ---
PT. ON ETT TO VENT A/C PC RATE 18, FIO2 32%, PEEP 5. BILATERAL LUNG SOUNDS DIMINISHED. BOTH EYES NON-REACTIVE. GENERALIZED WEAKNESS. IV SITE TO RIGHT UPPER ARM PICC LINE, RUNNING NS TKO. PER DAY SHIFT FENTANYL AND VERSED DRIP OFF DUE TO PT. CHANGED OF CONDITION 5 MINUTES PRIOR TO OUR SHIFT. RIGHT JUGULAR KATHRYN CATHETER CAPPED. HEMODIALYSIS DONE YESTERDAY WITH 2L OUTPUT. NEGRETE CATHETER WITH CLOUDY HERI URINE COLOR. SKIN INTACT AND EDEMATOUS. REPOSITIONED AND PLACED IN COMFORTABLY. HOB ELEVATED 30 DEGREES AND TOLERATED. WILL CONT. TO MONITOR.
--- NOTE | 2022-07-20 19:36 | NUR ---
1851 EKG DONE STAT. RESULTS GIVEN TO RN
--- NOTE | 2022-07-20 20:00 | NUR ---
PT. TEMP. 91.6 AND PROVIDED A TAZ HUGGER. WILL CONT. TO MONITOR.
[2022-07-20] MEDS ORDERED: PHYTONADIONE 10 MG/ML AMP SUBQ SCH (20:10)
[2022-07-21] VITALS (28 sets, daily range): BP systolic 102–167; BP diastolic 61–117
[2022-07-21] MEDS: INSULIN LISPRO SLIDING SCALE 100 UNITS/ML VIAL SUBQ PRN ×3 (00:10→17:52)
[2022-07-21] MEDS: BLOOD GLUCOSE MONITORING 1 DEV DEV FS SCH ×4 (00:12→17:51)
[2022-07-21] MEDS: ALBUTEROL SULFATE/IPRATROPIU 3 ML SOL IH SCH ×4 (00:58→16:41)
[2022-07-21 05:37] LABS: EOSINOPHILS % (AUTO) 0.1 % (0.0-4.0); HEMATOCRIT 30.9 % (36-48); HEMOGLOBIN 10.2 g/dL (12.0-16.0); LYMPHOCYTES # (AUTO) 0.4 K/uL (2.5-16.5); LYMPHOCYTES % (AUTO) 3.6 % (20.5-51.1); MEAN CORPUSCULAR HEMOGLOBIN 30 pg (27-31); MEAN CORPUSCULAR HGB CONC 33 g/dL (33-37); MEAN CORPUSCULAR VOLUME 89.7 fL (80-94); MONOCYTES # (AUTO) 0.5 K/uL (0.8-1.0); MONOCYTES % (AUTO) 4.6 % (1.7-9.3); NEUTROPHILS # (AUTO) 10.7 K/uL (1.8-7.7); NEUTROPHILS % (AUTO) 91.7 % (42.2-75.2); PLATELET COUNT (AUTO) 45 K/uL (140-450); RED BLOOD CELL COUNT(AUTO) 3.45 MIL/uL (4.20-5.40); WHITE BLOOD COUNT (AUTO) 11.6 K/uL (4.8-10.8)
[2022-07-21] MEDS: PIPERACILLIN/TAZOBACTAM 2.25 GM in DEXTROSE 5% 50 ML IV SCH ×3 (05:54→21:10)
[2022-07-21] MEDS: LEVOTHYROXINE 0.025 MG TAB PO SCH (06:22)
[2022-07-21 06:36] LABS: ANION GAP 13.8 (8-16); CARBON DIOXIDE 25.2 mmol/L (21-32); CHLORIDE 105 mmol/L (98-107); CREATININE 3.4 mg/dL (0.6-1.3); GLUCOSE 209 mg/dL (74-106); SODIUM SERUM 140 mmol/L (136-145); UREA NITROGEN, BLOOD 57 mg/dL (7-18)
[2022-07-21 06:43] LABS: MAGNESIUM 2.3 mg/dL (1.8-2.4); PHOSPHORUS 4.8 mg/dL (2.5-4.9)
--- NOTE | 2022-07-21 07:15 | NUR ---
ENDORSED PT. REPORT GIVEN TO MARCELINO CARIAS FOR CONTINUITY OF CARE.
--- NOTE | 2022-07-21 07:17 | NUR ---
SBAR REPORT RECEIVED FROM LIN BENSON, ALL CARES ASSUMED. PT ETT TO VENT, ACPC 18, 50%, 5. NEGRETE CATHETER DRAINING TO GRAVITY. NEPRO INFUSING 50mL/hr VIA NG TUBE IN LEFT NARE. PT RESPONSIVE TO TACTILE STIMULI. BED IN LOW, LOCKED POSITION.
--- NOTE | 2022-07-21 09:05 | NUR ---
HD RN AT BEDSIDE. VSS AT THIS TIME.
[2022-07-21 09:11] LABS: PROTHROMBIN TIME 10.9 secs (10.8-13.4)
[2022-07-21] MEDS: FAMOTIDINE 20 MG/2 ML VIAL IV SCH (09:44)
[2022-07-21] MEDS: CALCIUM ACETATE 667 MG TAB PO SCH ×3 (09:44→17:45)
--- NOTE | 2022-07-21 13:03 | NUR ---
HD RN COMPLETED HD, 2L OF FLUID OUT. VSS STABLE AT THIS TIME.
--- NOTE | 2022-07-21 15:39 | NUR ---
PT VOMITED OSMAN FLUID. PT POSITIONED TO HIGH FOWLERS, ETT SUCTIONED, MOUTH SUCTIONED. TUBE FEEDING ON HOLD. VSS AT THIS TIME.
--- NOTE | 2022-07-21 15:55 | NUR ---
PT VOMITED FOR A SECOND TIME, SMALL AMOUNT OF OSMAN LIQUID. PAGED.
--- NOTE | 2022-07-21 16:10 | NUR ---
PT VOMITED FOR A THIRD TIME, MODERATE AMOUNT OF OSMAN FLUID. RT MARCUS ASSISTING AT BEDSIDE. PT SUCTIONED, CLEANED, GOWN AND LINEN CHANGED. DR BRAXTON GAVE TELEPHONE FOR FOR KUB. VSS AT THIS TIME. TUBE FEEDING STILL ON HOLD AT THIS TIME.
--- NOTE | 2022-07-21 20:38 | NUR ---
PT. FAMILY CAME TO VISIT. ASKED QUESTIONS AND PROVIDED UPDATE.
[2022-07-22] VITALS (22 sets, daily range): BP systolic 100–174; BP diastolic 41–103
[2022-07-22] MEDS: BLOOD GLUCOSE MONITORING 1 DEV DEV FS SCH ×5 (00:32→23:54)
[2022-07-22] MEDS: PIPERACILLIN/TAZOBACTAM 2.25 GM in DEXTROSE 5% 50 ML IV SCH ×3 (04:45→20:39)
[2022-07-22] MEDS: LEVOTHYROXINE 0.025 MG TAB PO SCH (06:43)
[2022-07-22] MEDS: ALBUTEROL SULFATE/IPRATROPIU 3 ML SOL IH SCH ×2 (07:57→13:00)
--- NOTE | 2022-07-22 08:25 | NUR ---
dietary consult, aware pt is having multiple episodes of diarrhea, shift coordinator rn reports diarrhea for shift, tube feedings were stopped.
[2022-07-22] MEDS: FAMOTIDINE 20 MG/2 ML VIAL IV SCH (08:54)
[2022-07-22] MEDS: CALCIUM ACETATE 667 MG TAB PO SCH ×3 (08:54→17:27)
--- NOTE | 2022-07-22 10:10 | NUR ---
BEDSIDE UPDATED PHYSICIAN ON RESPIRATORY STATUS AND VENT SETTINGS. EXPLAINED Pinsp AND RETURN VT, PHYSICIAN STATES TO KEEP VENT SETTINGS WHERE THEY ARE AND TO CONTINUE TO MONITOR. PHYSICIAN STATES TO ATTEMPT CPAP TRIALS WHEN PT IS MEDICALLY READY.
[2022-07-22] MEDS ORDERED: DEXTROSE 5% IV PRN (12:00)
[2022-07-22] MEDS ORDERED: FENTANYL CITRATE IV PRN (12:00)
--- NOTE | 2022-07-22 13:30 | NUR ---
Pinsp TITRATED TO [id number] ABOVE THE PEEP DUE TO PLATEAU PRESSURES >[id number], VT REMAIN ADEQUATE WILL CONTINUE TO MONITOR.
--- NOTE | 2022-07-22 19:30 | NUR ---
RECEIVED PT. FROM DAY SHIFT, MARCELINO MILLARD. PER DAY SHIFT, PT. WILL BE TRANSFERRED TOMORROW TO [facility]. DAY SHIFT RN DOESN'T HAVE ANY DETAILS IF MD AWARE AND THE RECEIVING HOSPITAL AWARE. PT. TEMITOPE BEAUCHAMP CAME TO VISIT, DOESN'T KNOW ALSO ABOUT THE PLAN TO TRANSFER. NITO MENTIONED THAT SHE WAS ABLE TO TALKED TO PRECIOUS (DTR) OVER THE PHONE AND DTR. SUPPOSED TO MEET NITO TODAY AT 1300, BUT ACCORDING TO NITO, PRECIOUS DIDN'T SHOW UP ON THE SAID TIME. PT. CONT. ON ETT TO VENT A/C PC RATE 18, FIO2 28%, PEEP 5 AND O2 SAT 99%. BILATERAL LUNG SOUNDS DIMINISHED. SUCTION MINIMAL ORAL THICK SECRETIONS. LEFT NGT CLAMPED PER ORDERED. IV TO RIGHT ARM PICC LINE NO S/S OF INFECTION. IVF INFUSING VERSED DRIP 1 MG/HR, FENTANYL DRIP 0.5 MCG/KG/HR. HR SINUS RHYTHM ON THE MONITOR. SKIN INTACT. ON BILATERAL SOFT WRIST RESTRAINT, DUE TO TENDENCY OF LIFTING HER BOTH ARMS AND HAND AND TENDENCY TO PULL OUT THE ETT. RESTRAINT SITE NO S/S OF POOR CIRCULATION AND NO S/S OF INJURY. NEGRETE CATHETER TO GRAVITY. HEMODIALYSIS YESTERDAY WITH 2L OUTPUT. PROVIDED VAP CARE. PLACED IN COMFORTABLE POSITION. NO S/S OF PAIN. WILL CONT. TO MONITOR.
--- NOTE | 2022-07-22 20:00 | NUR ---
PT. TEMP. 93.6 HOWEVER PT. SKIN NORMAL TEMP. TO TOUCH. PLACED A TAZ HUGGER AND WILL CONT. TO MONITOR.
[2022-07-22] MEDS: QUEtiapine FUMARATE 25 MG TAB GT SCH (20:54)
[2022-07-23] VITALS (22 sets, daily range): BP systolic 105–148; BP diastolic 66–93
[2022-07-23] MEDS: PIPERACILLIN/TAZOBACTAM 2.25 GM in DEXTROSE 5% 50 ML IV SCH ×3 (04:26→21:30)
[2022-07-23] MEDS: MIDAZOLAM IV PRN (06:00)
[2022-07-23] MEDS: DEXTROSE 5% IV PRN (06:00)
[2022-07-23] MEDS: BLOOD GLUCOSE MONITORING 1 DEV DEV FS SCH ×3 (06:09→18:21)
[2022-07-23] MEDS: LEVOTHYROXINE 0.025 MG TAB PO SCH (06:13)
[2022-07-23] MEDS: ALBUTEROL SULFATE/IPRATROPIU 3 ML SOL IH SCH ×3 (06:34→19:00)
--- NOTE | 2022-07-23 07:31 | NUR ---
RECEIVED REPORT FROM LIN BENSON, TRANSFER OF CARE AT THIS TIME. PT IS INTUBATED- PC, RATE OF 18, FIO2 28, PEEP OF 5. PT TOLERATING VENT, HOB ELEVATED. PT ON FENTANYL DRIP AT 0.5MCG/KG/HR AND VERSED 1MG/HR. RAAS -3. PICC TO RIGHT UPPER ARM- PATENT, NO SIGNS OF INFECTION. PT IN BILATERAL SOFT WRIST RESTRAINTS. NO SIGNS OF INJURY. ACTIVE RESTRAINT ORDER. NEGRETE IN PLACE. PT ON BEAR HUGGER FROM MAGAZINE FEEDER, AUX TEMP WAS 96.1 WITH MAGAZINE FEEDER NURSE. PT ON CONTINUOUS CARDIAC/O2 MONITOR.
[2022-07-23 08:49] LABS: BASOPHILS # (AUTO) 0.1 K/uL (0.00-0.22); BASOPHILS % (AUTO) 0.6 % (0.0-2.0); EOSINOPHILS # (AUTO) 0.1 K/uL (0-0.4); EOSINOPHILS % (AUTO) 0.5 % (0.0-4.0); HEMOGLOBIN 9.2 g/dL (12.0-16.0); LYMPHOCYTES # (AUTO) 1.3 K/uL (2.5-16.5); LYMPHOCYTES % (AUTO) 10.7 % (20.5-51.1); MEAN CORPUSCULAR HEMOGLOBIN 29 pg (27-31); MEAN CORPUSCULAR HGB CONC 33 g/dL (33-37); MEAN CORPUSCULAR VOLUME 89.5 fL (80-94); MONOCYTES # (AUTO) 0.6 K/uL (0.8-1.0); MONOCYTES % (AUTO) 5.1 % (1.7-9.3); NEUTROPHILS # (AUTO) 10.3 K/uL (1.8-7.7); NEUTROPHILS % (AUTO) 83.1 % (42.2-75.2); PLATELET COUNT (AUTO) 64 K/uL (140-450); RED BLOOD CELL COUNT(AUTO) 3.12 MIL/uL (4.20-5.40); RED CELL DISTRIBUTION WIDTH 17.9 % (11.6-13.7); WHITE BLOOD COUNT (AUTO) 12.4 K/uL (4.8-10.8)
[2022-07-23 08:56] LABS: ANION GAP 14.1 (8-16); CARBON DIOXIDE 26.1 mmol/L (21-32); CHLORIDE 102 mmol/L (98-107); CREATININE 3.6 mg/dL (0.6-1.3); GLUCOSE 116 mg/dL (74-106); POTASSIUM 4.2 mmol/L (3.5-5.1); SODIUM SERUM 138 mmol/L (136-145); UREA NITROGEN, BLOOD 54 mg/dL (7-18)
[2022-07-23] MEDS: DEXT 5% /NACL 0.9% 1,000 ML IV SCH (09:36)
[2022-07-23] MEDS: FAMOTIDINE 20 MG/2 ML VIAL IV SCH (09:38)
--- NOTE | 2022-07-23 10:05 | NUR ---
PICC LINE DRESSING CHANGE COMPLETED USING STERILE TECHNIQUE. DRESSING CDI.
[2022-07-23] MEDS: CALCIUM ACETATE 667 MG TAB PO SCH ×3 (11:16→18:36)
[2022-07-23] MEDS: QUEtiapine FUMARATE 25 MG TAB GT SCH ×2 (11:17→21:30)
[2022-07-23] MEDS ORDERED: DEXMEDETOMIDINE HCL 400 MCG in NACL 0.9% 96 ML IV PRN (11:55)
--- NOTE | 2022-07-23 11:58 | NUR ---
DR OSCAR AT BEDSIDE EVALUATING PT. VERBAL ORDER TO DISCONTINUE FENTANYL AND VERSED AND SWITCH TO PRECEDEX. OKAY TO START TUBE FEEDING NOW. ORDERED RT TO CHANGE VENT SETTINGS. VENT SETTINGS FOLLOWS: PC PINSP 25, R18, PEEP 5, FIO2 26%
--- NOTE | 2022-07-23 12:00 | NUR ---
BEDSIDE TITRATED Pinsp TO [id number] ABOVE THE PEEP. PHYSICIAN STATES TO OBTAIN VT AT LEAST OF 300ml. WILL CONTINUE TO MONITOR.
[2022-07-23] MEDS ORDERED: CRUSHER, PILL MC ONE (12:36)
--- NOTE | 2022-07-23 13:47 | NUR ---
PT HAD BOWEL MOVEMENT- SOFT CONSISTENCY. VIDHI CARE PROVIDED. PT REPOSITIONED FOR COMFORT. ALL NEEDS MET
[2022-07-23] MEDS: DEXMEDETOMIDINE HCL 400 MCG in NACL 0.9% 96 ML IV PRN (14:22)
--- NOTE | 2022-07-23 15:00 | NUR ---
DIALYSIS NURSE AT BEDSIDE FOR HEMODIALYSIS.
--- NOTE | 2022-07-23 17:56 | NUR ---
PT COMPLETED HEMODILAYSIS. REPORT RECEIVED FROM YEISON DIALYSIS NURSE. 2L WERE REMOVED. BP INCREASED TO 153/100 AT THE END OF DIALYSIS, HR OF 74. DR BRAXTON MADE AWARE.
--- NOTE | 2022-07-23 19:15 | NUR ---
REPORT GIVEN TO DOUG BENSON, TRANSFER OF CARE AT THIS TIME.
--- NOTE | 2022-07-23 19:30 | NUR ---
RECEIVED PT. FROM DAY SHIFT EVERT BENSON. PT. ON ETT TO VENT RATE 18, FIO2 25% AND PEEP 5. ASSESSED PT. WITH BILATERAL LUNGS DIMINISHED. SUCTIONED ETT AND ORAL WITH MINIMAL CREAMY THICK SECRETIONS. BILATERAL EYES SLUGGISH. SINUS RHYTHM ON THE MONITOR. IV TO RIGHT UPPER ARM PICC LINE INFUSING PRECEDEX 0.2 MCG/KG/HR AND D5NS AT 50 ML/HR. IV SITE NO S/S OF INFECTION OR INFILTRATION. PT. WITH LEFT NGT RUNNING NEPRO AT 40 ML/HR. ABDOMEN ROUND AND NON DISTENDED. ABDOMINAL SOUNDS HYPOACTIVE. SKIN INTACT HOWEVER BILATERAL UPPER ARM WITH WEEPING EDEMA. CONT. ON BILATERAL SOFT WRIST RESTRAINT. SITE NO S/S OF POOR CIRCULATION, NO S/S OF INJURY. PER DAY SHIFT HEMODIALYSIS DONE TODAY AND 2L OUTPUT. NEGRETE CATHETER TO GRAVITY WITH 0 TO MINIMAL OUTPUT. COLOR DARK HERI WITH NO ODOR. REPOSITIONED, PLACED IN COMFORTABLE AND QUIET ENVIRONMENT. NO S/S OF PAIN NOTED. WILL CONT. TO MONITOR.
--- NOTE | 2022-07-23 21:00 | NUR ---
PT. LEFT NGT RUNNING NEPRO AT 40 ML/HR. PT. GASTRIC RESIDUAL 270 ML, CREAMY THICK. WILL HOLD FEEDING AND WILL CONT. TO MONITOR.
[2022-07-24] VITALS (31 sets, daily range): BP systolic 140–168; BP diastolic 32–100
--- NOTE | 2022-07-24 | NUR ---
NGT GASTRIC RESIDUAL 250 CREAMY GREENISH THICK OUTPUT. FEEDING NEPRO STILL ON HOLD.
[2022-07-24] MEDS: ALBUTEROL SULFATE/IPRATROPIU 3 ML SOL IH SCH ×3 (01:00→12:07)
--- NOTE | 2022-07-24 04:33 | NUR ---
NGT GASTRIC RESIDUAL 260 ML CREAMY GREENISH THICK OUTPUT. WILL CONT. TO MONITOR. NEPRO FEEDING ON HOLD AND WILL ENDORSE TO THE NEXT SHIFT.
[2022-07-24] MEDS: PIPERACILLIN/TAZOBACTAM 2.25 GM in DEXTROSE 5% 50 ML IV SCH ×3 (04:37→21:29)
[2022-07-24] MEDS: DEXT 5% /NACL 0.9% 1,000 ML IV SCH (04:38)
[2022-07-24] MEDS: DEXMEDETOMIDINE HCL 400 MCG in NACL 0.9% 96 ML IV PRN (04:45)
[2022-07-24 06:10] LABS: BASOPHILS % (AUTO) 0.3 % (0.0-2.0); EOSINOPHILS # (AUTO) 0.1 K/uL (0-0.4); EOSINOPHILS % (AUTO) 0.5 % (0.0-4.0); HEMOGLOBIN 10.4 g/dL (12.0-16.0); LYMPHOCYTES # (AUTO) 1.3 K/uL (2.5-16.5); LYMPHOCYTES % (AUTO) 13.5 % (20.5-51.1); MEAN CORPUSCULAR HEMOGLOBIN 30 pg (27-31); MEAN CORPUSCULAR HGB CONC 34 g/dL (33-37); MEAN CORPUSCULAR VOLUME 89.2 fL (80-94); MONOCYTES # (AUTO) 0.7 K/uL (0.8-1.0); MONOCYTES % (AUTO) 7.2 % (1.7-9.3); NEUTROPHILS # (AUTO) 7.7 K/uL (1.8-7.7); NEUTROPHILS % (AUTO) 78.5 % (42.2-75.2); PLATELET COUNT (AUTO) 82 K/uL (140-450); RED BLOOD CELL COUNT(AUTO) 3.48 MIL/uL (4.20-5.40); RED CELL DISTRIBUTION WIDTH 17.3 % (11.6-13.7); WHITE BLOOD COUNT (AUTO) 9.8 K/uL (4.8-10.8)
[2022-07-24] MEDS: BLOOD GLUCOSE MONITORING 1 DEV DEV FS SCH ×4 (06:17→17:48)
[2022-07-24] MEDS: LEVOTHYROXINE 0.025 MG TAB PO SCH (06:21)
[2022-07-24 07:03] LABS: ANION GAP 12.3 (8-16); CARBON DIOXIDE 27.5 mmol/L (21-32); CHLORIDE 103 mmol/L (98-107); GLUCOSE 108 mg/dL (74-106); POTASSIUM 3.8 mmol/L (3.5-5.1); SODIUM SERUM 139 mmol/L (136-145); UREA NITROGEN, BLOOD 36 mg/dL (7-18)
--- NOTE | 2022-07-24 07:15 | NUR ---
RECEIVED BEDSIDE REPORT FROM PRECISION MACHINE OPERATOR LIN BENSON. PT SEDATED. A&O X0. AC PC FIO2 26%, RR 18, PEEP 5. SR ON MONITOR. RT IJ DIALYSIS CATHETER IN PLACE. PICC TO RT UPPER ARM, RUNNING PRECEDEX AT 0.2 MCG/KG/HR, D5 NS AT 50MLS/HR. NG TUBE FEEDING TO LT NARE. NEGRETE IN PLACE TO GRAVITY, NO URINE OUTPUT NOTICED. BILAT SOFT WRIST RESTRAINTS APPLIED. SKIN INTACT, BILAT ARM EDEMA. BED TO LOWEST POSITION AND HOB ELEVATED, WILL CONTINUE TO MONITOR.
--- NOTE | 2022-07-24 07:22 | NUR ---
ENDORSED PT. TO MARCELINO AGOSTO FOR CONTINUITY OF CARE. ALL QUESTIONS ANSWERED.
[2022-07-24] MEDS: CALCIUM ACETATE 667 MG TAB PO SCH ×3 (08:15→16:16)
[2022-07-24] MEDS: QUEtiapine FUMARATE 25 MG TAB GT SCH ×2 (08:15→21:29)
[2022-07-24] MEDS: FAMOTIDINE 20 MG/2 ML VIAL IV SCH (08:15)
--- NOTE | 2022-07-24 08:30 | NUR ---
SEEN AND EXAMINED BY DR OSCAR. UPDATED PT INFORMATION. ORDERED D/C D5 NS AND CHANGE TUBE FEEDING RATE TO 20MLS/HR.
--- NOTE | 2022-07-24 12:30 | NUR ---
DR CREWS ROUNDJESSICA AT BEDSIDE. UPDATED PT INFORMATION. DIALYSIS ORDERED FOR 07/25.
--- NOTE | 2022-07-24 14:01 | NUR ---
FAMILY/DAUGHTER AT BEDSIDE. UPDATED PT INFORMATION. STATED WORKING ON TRANSFER PT TO ANOTHER HOSPITAL FOR SECOND OPINION.
--- NOTE | 2022-07-24 14:01 | NUR ---
SEEN AND EXAMINED BY DR HILL. UPDATED PT INFORMATION. NO NEW ORDER.
--- NOTE | 2022-07-24 16:31 | NUR ---
PLACED PT ON CPAP 5 PS 12 PT DID NOT TOLERATE MORE THAN 5 MINUTES, PT BECAME TACHYPNEIC AND VT RANGED FROM 190-210. NURSE BEDSIDE AND AWARE OF CPAP TRIAL.
--- NOTE | 2022-07-24 16:50 | NUR ---
PT SEDATED. REPOSITIONED AND CHANGED, TOLERATED WELL.
--- NOTE | 2022-07-24 19:14 | NUR ---
ENDORSED TO ADVERTISING ANALYST LIN BENSON FOR CONTINUITY OF CARE.
--- NOTE | 2022-07-24 19:30 | NUR ---
RECEIVED PT. FROM DAY SHIFT RNSURENDRA. AOX 0. PT. ON ETT TO VENT RATE 18, FIO2 25% AND PEEP 5. ASSESSED PT. WITH BILATERAL LUNGS DIMINISHED. SUCTIONED ETT AND ORAL WITH MINIMAL CREAMY THICK SECRETIONS. BILATERAL EYES SLUGGISH. SINUS RHYTHM ON THE MONITOR. IV TO RIGHT UPPER ARM PICC LINE INFUSING PRECEDEX 0.2 MCG/KG/HR. IV SITE NO S/S OF INFECTION OR INFILTRATION. PT. WITH LEFT NGT, FEEDING ON HOLD BY DAY SHIFT NEPRO 20 ML/HR DUE TO HIGH GASTRIC RESIDUAL 200 ML. ABDOMEN ROUND AND NON DISTENDED. ABDOMINAL SOUNDS HYPOACTIVE. SKIN INTACT HOWEVER BILATERAL UPPER ARM WITH WEEPING EDEMA. CONT. BILATERAL SOFT WRIST RESTRAINT IN PLACED. SITE NO S/S OF POOR CIRCULATION, NO S/S OF INJURY. NEGRETE CATHETER TO GRAVITY WITH NO OUTPUT. PLACED IN COMFORTABLE AND QUIET ENVIRONMENT. BED IN LOWEST POSITION. NO ACUTE DISTRESS. NO S/S OF PAIN NOTED. WILL CONT. TO MONITOR.
--- NOTE | 2022-07-24 20:35 | NUR ---
PATIENTS PRESSURES ON THE HIGH SIDE 30, THEY DECREASED AFTER SUCTIONING AND CLEARING MOISTURE IN TUBING. SPUTUM WAS SMALL AMOUNT OF THICK, BLOOD TINGED . MOVED THE ET TUBE TO PT RIGHT SIDE OF MOUTH. TX WAS GIVEN AND PT RESPONDED WELL. NO DISTRESS NOTED. PT WAS NOT AWAKE Addendum: 07/25/22 at 0103 by Kasandra Leon RT pREVIOUS CHARTING SHOWED HIGH PRESSURE ALARM AT 750. PT FOUND ON 850 WHICH IS WHAT WAS CHARTED BY RT
[2022-07-25] VITALS (29 sets, daily range): BP systolic 116–177; BP diastolic 60–100
[2022-07-25] MEDS: ALBUTEROL SULFATE/IPRATROPIU 3 ML SOL IH SCH ×5 (01:35→19:08)
[2022-07-25] MEDS: PIPERACILLIN/TAZOBACTAM 2.25 GM in DEXTROSE 5% 50 ML IV SCH (04:38)
[2022-07-25] MEDS: DEXMEDETOMIDINE HCL 400 MCG in NACL 0.9% 96 ML IV PRN (04:39)
[2022-07-25 05:57] LABS: BASOPHILS % (AUTO) 0.5 % (0.0-2.0); EOSINOPHILS # (AUTO) 0.1 K/uL (0-0.4); EOSINOPHILS % (AUTO) 0.6 % (0.0-4.0); HEMATOCRIT 31.3 % (36-48); HEMOGLOBIN 10.5 g/dL (12.0-16.0); LYMPHOCYTES # (AUTO) 1.3 K/uL (2.5-16.5); LYMPHOCYTES % (AUTO) 15.1 % (20.5-51.1); MEAN CORPUSCULAR HEMOGLOBIN 30 pg (27-31); MEAN CORPUSCULAR HGB CONC 34 g/dL (33-37); MEAN CORPUSCULAR VOLUME 88.2 fL (80-94); MONOCYTES # (AUTO) 0.6 K/uL (0.8-1.0); NEUTROPHILS # (AUTO) 6.5 K/uL (1.8-7.7); NEUTROPHILS % (AUTO) 76.8 % (42.2-75.2); PLATELET COUNT (AUTO) 96 K/uL (140-450); RED BLOOD CELL COUNT(AUTO) 3.55 MIL/uL (4.20-5.40); RED CELL DISTRIBUTION WIDTH 16.8 % (11.6-13.7); WHITE BLOOD COUNT (AUTO) 8.5 K/uL (4.8-10.8)
[2022-07-25] MEDS: BLOOD GLUCOSE MONITORING 1 DEV DEV FS SCH ×4 (06:00→18:10)
[2022-07-25 06:44] LABS: ANION GAP 15.1 (8-16); CARBON DIOXIDE 26.1 mmol/L (21-32); CHLORIDE 102 mmol/L (98-107); CREATININE 3.6 mg/dL (0.6-1.3); GLUCOSE 128 mg/dL (74-106); POTASSIUM 4.2 mmol/L (3.5-5.1); SODIUM SERUM 139 mmol/L (136-145); UREA NITROGEN, BLOOD 44 mg/dL (7-18)
[2022-07-25] MEDS: LEVOTHYROXINE 0.025 MG TAB PO SCH (06:48)
--- NOTE | 2022-07-25 07:28 | NUR ---
ENDORSED PT. TO DAY SHIFT,REPORT GIVEN TO MARCELINO DOMINGUEZ FOR CONTINUITY OF CARE. ALL QUESTIONS ANSWERED.
--- NOTE | 2022-07-25 07:29 | NUR ---
RECEIVED REPORT FROM FLORIST NURSE. PATIENT LYING DOWN IN BED, ETT TO TRACH, AC/PC TRACH SETTINGS: FIO2: 26%, PEEP:5. VT:[address] ON LEFT NARE INFUSING TUBE FEEDING PER MD ORDERS. BETHANY PICC LINE IN PLACE, ON PRECEDEX DRIP, NO IVF. NEGRETE CATH IN PLACE. GENERALIZED BUE/BLE EDEMA NOTED. B/L WRIST RESTRAINTS ON PATIENT FOR TRYING TO PULL ON TUBING LINES. REVIEWED PLAN OF CARE WITH PATIENT. UNABLE TO COMPREHEND. SAFETY MEASURES IN PLACE. WILL CONTINUE TO MONITOR.
[2022-07-25] MEDS: CALCIUM ACETATE 667 MG TAB PO SCH ×3 (08:00→17:35)
--- NOTE | 2022-07-25 09:00 | NUR ---
ORAL CARE PROVIDED. WILL CONTINUE TO MONITOR.
[2022-07-25] MEDS: FAMOTIDINE 20 MG/2 ML VIAL IV SCH (09:07)
[2022-07-25] MEDS: QUEtiapine FUMARATE 25 MG TAB GT SCH (09:07)
--- NOTE | 2022-07-25 09:21 | NUR ---
SCHEDULED MEDICATIONS DUE GIVEN. WILL CONTINUE TO MONITOR.
--- NOTE | 2022-07-25 11:22 | NUR ---
ORAL CARE PROVIDED WILL CONTINUE TO MONITOR.
--- NOTE | 2022-07-25 12:04 | NUR ---
SCHEDULED MEDICATIONS DUE GIVEN. WILL CONTINUE TO MONITOR.
--- NOTE | 2022-07-25 16:30 | NUR ---
HD NURSE AT BEDSIDE TO START HD. WILL CONTINUE TO MONITOR.
--- NOTE | 2022-07-25 17:36 | NUR ---
SCHEDULED MEDICATIONS DUE GIVEN. WILL CONTINUE TO MONITOR.
--- NOTE | 2022-07-25 19:01 | NUR ---
HD COMPLETED, 3L OUT, HEPARIN LOCK GIVEN ON RIJ KATHRYN CATH. WILL CONTINUE TO MONITOR.
--- NOTE | 2022-07-25 19:05 | NUR ---
Assumed pt xcare report received at the bedside from ANGELICA BENSON. Met pt intubated non verbal eyes closed unable to follow command immediate post Hemodialysis vitals signs stable afebrile, restraints released for skin checked, witnessed trying to pull tubes, moves upper extremities but lower extremities withdraws to pain, ETT to ventilator A/C P/C FIO2 26% O2 sat 99% tolerating well oral care doen suction via ETT bloody, thick, NGT p;acement checked verified by auscultation, clamped as at this time due to high residual also checked was 80ml, ESRD no urine via foy, repositioned for comfortt will continue to monitor and treat as per care plan.
--- NOTE | 2022-07-25 19:08 | NUR ---
GAVE REPORT TO LAW OFFICE MANAGER NURSE FOR CONTINUITY OF CARE. CONTINUES TO BE IN CRITICAL CONDITION.
[2022-07-26] VITALS (28 sets, daily range): BP systolic 114–180; BP diastolic 57–95
[2022-07-26] MEDS: BLOOD GLUCOSE MONITORING 1 DEV DEV FS SCH ×4 (00:39→17:49)
[2022-07-26] MEDS: DEXMEDETOMIDINE HCL 400 MCG in NACL 0.9% 96 ML IV PRN (02:00)
--- NOTE | 2022-07-26 05:30 | NUR ---
Complete bed bath with linen changed tolerated well vitals signs stable oral skin care and pt repositioned for comfort .
[2022-07-26 06:06] LABS: BASOPHILS # (AUTO) 0.1 K/uL (0.00-0.22); BASOPHILS % (AUTO) 0.5 % (0.0-2.0); EOSINOPHILS % (AUTO) 0.5 % (0.0-4.0); HEMATOCRIT 30.3 % (36-48); HEMOGLOBIN 10.2 g/dL (12.0-16.0); LYMPHOCYTES # (AUTO) 0.8 K/uL (2.5-16.5); LYMPHOCYTES % (AUTO) 8.2 % (20.5-51.1); MEAN CORPUSCULAR HEMOGLOBIN 30 pg (27-31); MEAN CORPUSCULAR HGB CONC 34 g/dL (33-37); MEAN CORPUSCULAR VOLUME 88.5 fL (80-94); MONOCYTES # (AUTO) 0.6 K/uL (0.8-1.0); MONOCYTES % (AUTO) 6.3 % (1.7-9.3); NEUTROPHILS # (AUTO) 8.3 K/uL (1.8-7.7); NEUTROPHILS % (AUTO) 84.5 % (42.2-75.2); PLATELET COUNT (AUTO) 107 K/uL (140-450); RED BLOOD CELL COUNT(AUTO) 3.43 MIL/uL (4.20-5.40); RED CELL DISTRIBUTION WIDTH 17.3 % (11.6-13.7); WHITE BLOOD COUNT (AUTO) 9.8 K/uL (4.8-10.8)
[2022-07-26] MEDS: LEVOTHYROXINE 0.025 MG TAB PO SCH (06:53)
[2022-07-26] MEDS: ALBUTEROL SULFATE/IPRATROPIU 3 ML SOL IH SCH ×3 (07:02→19:50)
[2022-07-26 07:14] LABS: ANION GAP 14.8 (8-16); CARBON DIOXIDE 27.3 mmol/L (21-32); CHLORIDE 100 mmol/L (98-107); CREATININE 3.1 mg/dL (0.6-1.3); GLUCOSE 130 mg/dL (74-106); POTASSIUM 4.1 mmol/L (3.5-5.1); SODIUM SERUM 138 mmol/L (136-145); UREA NITROGEN, BLOOD 34 mg/dL (7-18)
--- NOTE | 2022-07-26 07:15 | NUR ---
RECEIVED BEDSIDE REPORT FROM LAN SPECIALIST VENUS BENSON. PT SEDATED. A&O X0. AC PC FIO2 26%, RR 18, PEEP 5. SR ON MONITOR. RT IJ DIALYSIS CATHETER IN PLACE. PICC TO RT UPPER ARM, RUNNING PRECEDEX AT 0.3 MCG/KG/HR. NGT TO LT NARE, TUBE FEEDING HELD DUE TO HIGH RESIDUAL. NEGRETE IN PLACE TO GRAVITY, NO URINE OUTPUT NOTICED. BILAT SOFT WRIST RESTRAINTS APPLIED. SKIN INTACT, BILAT ARM PITTING EDEMA AND WEEPING. BED TO LOWEST POSITION AND HOB ELEVATED, WILL CONTINUE TO MONITOR.
--- NOTE | 2022-07-26 07:19 | NUR ---
@0712 Report given to SURENDRA BENSON at the bedside for continuity of care vitals sighs stable no changes in care plan. @0717 Dr REID called back updates on pt's condition, mentionede to MD about elevated SBP >160 170's order received to give Hydralazine 10mg q6h PRN for SBP>160
[2022-07-26] MEDS: FAMOTIDINE 20 MG/2 ML VIAL IV SCH (08:26)
[2022-07-26] MEDS: CALCIUM ACETATE 667 MG TAB PO SCH ×3 (08:26→16:12)
[2022-07-26] MEDS ORDERED: ALTEPLASE 2 MG VIAL MC SCH (08:58)
[2022-07-26] MEDS: hydrALAZINE 20 MG/ML VIAL IVP PRN ×2 (09:50→12:31)
--- NOTE | 2022-07-26 09:50 | NUR ---
DR DAYNE VIVEROS AT BEDSIDE. UPDATED PT INFORMATION.
--- NOTE | 2022-07-26 10:15 | NUR ---
SEEN AND EXAMINED BY DR FOOTE. UPDATED PT INFORMATION.
[2022-07-26] MEDS ORDERED: METOCLOPRAMIDE 10 MG/10 ML SYRP UDC GT PRN (10:30)
[2022-07-26] MEDS: carvediloL 6.25 MG TAB PO SCH ×2 (10:43→16:13)
[2022-07-26] MEDS: DOCUSATE 100 MG/10 ML UDC GT SCH (10:43)
--- NOTE | 2022-07-26 11:00 | NUR ---
SEEN AND EXAMINED BY DR CREWS. UPDATED PT INFORMATION. ORDERED ADDITIONAL HD TODAY.
[2022-07-26] MEDS ORDERED: CLONIDINE HYDROCHLORIDE 0.1 MG TAB PO PRN (11:20)
--- NOTE | 2022-07-26 12:46 | NUR ---
FAMILY AT BEDSIDE. UPDATED PT INFORMATION AND ALL QUESTIONS ANSWERED.
--- NOTE | 2022-07-26 15:44 | NUR ---
07/26/22 RD FOLLOW UP COMPLETED PLEASE REFER TO NUTRITION ASSESSMENT UNDER CARE ACTIVITY FOR ESTIMATED NUTRITIONAL NEEDS. 1. RECOMMEND CONTINUING NEPRO 1.8 @ 40ML/HR TOLERATED -FWF: 150ML Q8H OR PER MD -WILL PROVIDE 1728 KCAL AND 78 GRAMS OF PROTEIN, MEETING 100% OF ESTIMATED ENERGY NEEDS; ADEQUATE. 2. RECOMMEND MONITORING GASTRIC RESIDUALS Q4H -HOLD FEEDING FOR 2 HOURS IF RESIDUAL > 500ML. RESTART IF <500ML. RECOMMEND REGLAN FOR GI MOTILITY 3. RD TO FOLLOW-UP IN 3-5 DAYS PATIENT IS MODERATE RISK. CHRISTIAN TALBERT RD
--- NOTE | 2022-07-26 18:35 | NUR ---
HD NURSE DOING BESIDE HD, PT TOLERATE WELL. OVERRIDE HEPARIN 5000 UNIT X 2 FOR HD NURSE.
--- NOTE | 2022-07-26 19:13 | NUR ---
ENDORSED TO RN NIGHT VENUS BENSON FOR CONTINUITY OF CARE.
--- NOTE | 2022-07-26 19:40 | NUR ---
Assumed pt care report received at bedside from Sara BENSON, met pt awake alert post hemodialysis, follows command, nods appropriately denies pain vitals stable afebrile still intubated ETT to ventilator tolerating well FIO2 26% O2 SAT 96% no sign of distress, NGT placement checked and verified by auscultation no residual ongoing tube feeding Nephro @40ml/hr, anuric no urine noted via foy and hemodialysis done today with net output 3 liters. Willl continue to monitor and treat as per care plan
--- NOTE | 2022-07-26 20:30 | NUR ---
CXomplete bed bath given perineal care foam applied to sacral area, oral care, skin care, suction via ETT, tolerated care well and repositioned for comfort. Large watery loos e stool Addendum: 07/27/22 at 0053 by Agency Toni BENSON RN Complete bed bath
[2022-07-26] MEDS: FERROUS SULFATE 300 MG/5 ML UDC GT SCH (22:55)
[2022-07-27] VITALS (32 sets, daily range): BP systolic 75–183; BP diastolic 53–99
[2022-07-27] MEDS: BLOOD GLUCOSE MONITORING 1 DEV DEV FS SCH ×4 (00:10→18:54)
[2022-07-27] MEDS: INSULIN LISPRO SLIDING SCALE 100 UNITS/ML VIAL SUBQ PRN ×2 (00:14→06:38)
[2022-07-27] MEDS: hydrALAZINE 20 MG/ML VIAL IVP PRN (00:17)
[2022-07-27] MEDS: ALBUTEROL SULFATE/IPRATROPIU 3 ML SOL IH SCH ×4 (01:46→19:12)
[2022-07-27 06:03] LABS: ANION GAP 15.7 (8-16); CARBON DIOXIDE 24.8 mmol/L (21-32); CHLORIDE 101 mmol/L (98-107); CREATININE 3.6 mg/dL (0.6-1.3); GLUCOSE 185 mg/dL (74-106); POTASSIUM 3.5 mmol/L (3.5-5.1); SODIUM SERUM 138 mmol/L (136-145); UREA NITROGEN, BLOOD 40 mg/dL (7-18)
[2022-07-27 06:15] LABS: BASOPHILS # (AUTO) 0.1 K/uL (0.00-0.22); BASOPHILS % (AUTO) 0.5 % (0.0-2.0); EOSINOPHILS % (AUTO) 0.2 % (0.0-4.0); HEMOGLOBIN 11.3 g/dL (12.0-16.0); LYMPHOCYTES # (AUTO) 0.7 K/uL (2.5-16.5); LYMPHOCYTES % (AUTO) 7.7 % (20.5-51.1); MEAN CORPUSCULAR HEMOGLOBIN 30 pg (27-31); MEAN CORPUSCULAR HGB CONC 34 g/dL (33-37); MEAN CORPUSCULAR VOLUME 87.9 fL (80-94); MONOCYTES # (AUTO) 0.4 K/uL (0.8-1.0); MONOCYTES % (AUTO) 4.7 % (1.7-9.3); NEUTROPHILS # (AUTO) 8.2 K/uL (1.8-7.7); NEUTROPHILS % (AUTO) 86.9 % (42.2-75.2); PLATELET COUNT (AUTO) 128 K/uL (140-450); RED BLOOD CELL COUNT(AUTO) 3.76 MIL/uL (4.20-5.40); RED CELL DISTRIBUTION WIDTH 17.1 % (11.6-13.7); WHITE BLOOD COUNT (AUTO) 9.4 K/uL (4.8-10.8)
[2022-07-27] MEDS: LEVOTHYROXINE 0.025 MG TAB PO SCH (06:24)
--- NOTE | 2022-07-27 07:00 | NUR ---
RECEIVED PT ON PC 25,RR18,+5, 26%. VENT PLUGGED INTO RED OUTLET, WHEELS ARE LOCKED AND ALARMS ARE SET AND AUDIBLE, AMBUBAG AT BEDSIDE. SATURATION 99% ON 26% FI02. EQUAL BILATERAL CHEST RISE. SUCTIONED UP BLOOD TINGED SECRETIONS, IMPROVED BREATH SOUNDS. GA IS RESTING COMFORTABLY. WILL CONTINUE TO MONITOR.
--- NOTE | 2022-07-27 07:18 | NUR ---
Change of shift report SBAR given KATE RN at the bedside for continuity of care vitals signs stable pt restful and no changes in care plan.
[2022-07-27] MEDS: DOCUSATE 100 MG/10 ML UDC GT SCH (07:51)
[2022-07-27] MEDS: CALCIUM ACETATE 667 MG TAB PO SCH ×3 (07:51→17:26)
[2022-07-27] MEDS: FAMOTIDINE 20 MG/2 ML VIAL IV SCH (07:51)
[2022-07-27] MEDS: carvediloL 6.25 MG TAB PO SCH ×2 (07:53→17:26)
[2022-07-27] MEDS: FERROUS SULFATE 300 MG/5 ML UDC GT SCH ×2 (07:53→21:59)
--- NOTE | 2022-07-27 09:15 | NUR ---
RECEIVED PATINET IN BED ON VENTILATOR, NOT ON SEDATION, PICC LINE DUAL LUMEN, NEGRETE CATHETER PRESENT, ALESSANDRA CATHETER PRESENT. WILL CONTINUE TO MONITOR.
--- NOTE | 2022-07-27 19:06 | NUR ---
SBAR HAND OF REPORT RECEIVED FROM KATE BENSON, PT AWAKE FOLLOWS COMMAND, MOVES UPPER EXTREMITIES, LOWER TO PAIN, VITALS SIGNS STABLE INTUBATED ETT TO VENT FIO2 26% A/C P/C MODE TOLERATING WELL VITALS SIGNS STABLE AFEBRILE HR IN 80'S NSR GENERALIZED PITTING EDEMA , NGT TUBE CLAMPED NO FEEDING PER MD'S ORDER BECAUSE PT HAD LARGE EMESIS PLACEMENT VERIFIED BY AUSCULTATION, PT STILL HAVING LARGE AMOUNTS OF LOOSE STOOL EXCORIATED BUTTOCKS SACRAL AREA MOISTURE INDUCED, NEGRETE IN PLACE BLOODY SMALL AMOUNT OF URINE NOTED, IV SITE PICC LINE FLUSHED WITH NORMAL SALINE DRESSING DRY AND INTACT ORAL CARE DONE SUCTIONED AND WILL CONTINUE TO MONTOR AND TREAT PER CARE PLAN
--- NOTE | 2022-07-27 20:45 | NUR ---
PT HAD LOOSE BOWEL MOVEMENT, COMPLETE BED BATH WITH LINEN CHANGED, EXCORIATED REDNESS SKIN BREAKDOWN ON THE BUTTOCKS BARRIER CREAM APPLIED AND FLEXISEAL INSERTED RECTALLY TO PREVENT FURTHER SKIN BREAKDOWN PT TOLERATED WELLL
[2022-07-28] VITALS (33 sets, daily range): BP systolic 118–186; BP diastolic 62–98
[2022-07-28] MEDS: BLOOD GLUCOSE MONITORING 1 DEV DEV FS SCH ×4 (00:58→18:28)
[2022-07-28] MEDS: INSULIN LISPRO SLIDING SCALE 100 UNITS/ML VIAL SUBQ PRN (01:01)
[2022-07-28] MEDS: ALBUTEROL SULFATE/IPRATROPIU 3 ML SOL IH SCH ×4 (01:08→19:20)
[2022-07-28] MEDS: hydrALAZINE 20 MG/ML VIAL IVP PRN (04:32)
[2022-07-28 06:05] LABS: MONOCYTES # (AUTO) 0.4 K/uL (0.8-1.0); MONOCYTES % (AUTO) 3.8 % (1.7-9.3); WHITE BLOOD COUNT (AUTO) 9.3 K/uL (4.8-10.8)
[2022-07-28 06:08] LABS: ANION GAP 15.1 (8-16); CARBON DIOXIDE 26.4 mmol/L (21-32); CHLORIDE 100 mmol/L (98-107); CREATININE 3.1 mg/dL (0.6-1.3); GLUCOSE 125 mg/dL (74-106); POTASSIUM 3.5 mmol/L (3.5-5.1); SODIUM SERUM 138 mmol/L (136-145); UREA NITROGEN, BLOOD 30 mg/dL (7-18)
[2022-07-28] MEDS: LEVOTHYROXINE 0.025 MG TAB PO SCH (06:08)
[2022-07-28 06:35] LABS: BASOPHILS % (AUTO) 0.4 % (0.0-2.0); EOSINOPHILS % (AUTO) 0.2 % (0.0-4.0); HEMATOCRIT 31.2 % (36-48); HEMOGLOBIN 10.7 g/dL (12.0-16.0); LYMPHOCYTES # (AUTO) 0.8 K/uL (2.5-16.5); LYMPHOCYTES % (AUTO) 8.8 % (20.5-51.1); MEAN CORPUSCULAR HEMOGLOBIN 31 pg (27-31); MEAN CORPUSCULAR HGB CONC 34 g/dL (33-37); MEAN CORPUSCULAR VOLUME 89.4 fL (80-94); NEUTROPHILS % (AUTO) 86.8 % (42.2-75.2); PLATELET COUNT (AUTO) 157 K/uL (140-450); RED BLOOD CELL COUNT(AUTO) 3.49 MIL/uL (4.20-5.40); RED CELL DISTRIBUTION WIDTH 17.2 % (11.6-13.7)
--- NOTE | 2022-07-28 07:17 | NUR ---
SBAR HANDOFF GIVEN TO CLYDE RN AT THE BEDSIDE FOR CONTINUITY OF CARE. PT AWAKE VITALS SIGNS STABLE NO SIGN OF DISTRESS AND NO CHNAGES IN CARE PLAN.
--- NOTE | 2022-07-28 07:20 | NUR ---
SBAR REPORT RECEIVED FORM VENUS BENSON, ALL CARES ASSUMED. PT ETT TO VENT, ACPC 18, 26%, 5. NEGRETE CATHETER TO GRAVITY. FLEXISEAL TO GRAVITY. NGT TO LEFT NARE CLAMPED, TUBE FEEDING ON HOLD. SALINE LOCKED BETHANY PICC. PT RESTING IN BED WITH EYES OPEN, NOT TRACKING.
[2022-07-28] MEDS: carvediloL 6.25 MG TAB PO SCH ×2 (08:26→17:00)
[2022-07-28] MEDS: FAMOTIDINE 20 MG/2 ML VIAL IV SCH (08:27)
[2022-07-28] MEDS: FERROUS SULFATE 300 MG/5 ML UDC GT SCH ×2 (08:27→21:55)
[2022-07-28] MEDS: DOCUSATE 100 MG/10 ML UDC GT SCH (08:27)
[2022-07-28] MEDS: CALCIUM ACETATE 667 MG TAB PO SCH ×3 (08:27→17:00)
--- NOTE | 2022-07-28 08:45 | NUR ---
RT INITIATED CPAP TRIAL, PT DID NOT TOLERATE. RT SWITCHED PT BACK TO ACPC MODE AFTER APPROXIMATELY 2 MINUTES. VSS
--- NOTE | 2022-07-28 08:45 | NUR ---
CPAP TRIAL OF 15/5 STARTED AT THIS TIME. PT SHOWED BRADYPNEA AT 6-8 BREATHS PER MINUTE AND HAD INSUFFICIENT VT AT 100-240 ML. CPAP TRIAL DISCONTINUED AFTER 2 MINUTES.
--- NOTE | 2022-07-28 12:15 | NUR ---
PT CLEANED, LINEN AND GOWN CHANGED. PT TOLERATED WELL, VSS, FLACC 0. NEGRETE CARE DONE. ORAL CARE DONE. SACRAL AREA CLEANED WITH NEW OPTIFOAM APPLIED.
--- NOTE | 2022-07-28 19:21 | NUR ---
SBAR REPORT GIVEN TO MELINA RN, ALL CARES ENDORSED.
--- NOTE | 2022-07-28 19:25 | NUR ---
RECEIVED PATIENT ON BED WITH HOB TO 30 DEGREE; PATIENT IS LEHARGIC BUT TRIES TO OPEN HER EYES IN RESPONSE TO CALLS. ORALLY INTUBATED AND VENTILATED AT 26% FI02; S02 98%. CARDIACSCOPE SHOWS ON SINUS RHYTHM HR 98/MIN. WITH PICC LINE IN SITU TO RIGHT UPPER ARM; INTACT. WITH KATHRYN CATH TO RIGHT INTERNAL JUGULAR FOR HD ACCESS. ABDOMEN IS SOFT, NON TENDER, ACTIVE BOWEL SOUNDS. WITH NEGRETE CATH IN PLACE TO GRAVITY DRAINAGE BAG DRAINING TO DARK HERI URINE OUTPUT;INTACT; WITH RECTAL BAG IN PLACE. WITH EDEMA OF BOTH UPPER AND LOWER EXTREMITIES.
--- NOTE | 2022-07-28 21:00 | NUR ---
TURNED AND REPOSITIONED PATIENT; ORAL CARE DONE WITH VAP KIT.
[2022-07-29] VITALS (25 sets, daily range): BP systolic 108–166; BP diastolic 49–105
[2022-07-29] MEDS: ALBUTEROL SULFATE/IPRATROPIU 3 ML SOL IH SCH ×4 (01:42→19:20)
[2022-07-29] MEDS: hydrALAZINE 20 MG/ML VIAL IVP PRN (04:14)
--- NOTE | 2022-07-29 05:00 | NUR ---
MORNING BED BATH DONE, WOUND CARE DONE; KEPT CLEAN DRY AND COMFORTABLE.
[2022-07-29] MEDS: BLOOD GLUCOSE MONITORING 1 DEV DEV FS SCH ×4 (06:01→17:55)
[2022-07-29] MEDS: LEVOTHYROXINE 0.025 MG TAB PO SCH (06:04)
--- NOTE | 2022-07-29 07:30 | NUR ---
Received pt nonverbal, able to track with eyes, does not follow command. ETT to vent settings AC PC FiO2 24%, rate 18, PEEP 5. Sinus rhythm on monitor. NG-tube to left nare intact. Stephenson catheter intact and draining to bedside drainage. Rectal tube in place. Right IJ Beni cath intact. PICC line on right upper arm saline locked. No sign or symptom of hypo/hyperglycemia. Safety precautions in place.
[2022-07-29 07:48] LABS: HEMOGLOBIN 10.6 g/dL (12.0-16.0); WHITE BLOOD COUNT (AUTO) 9.2 K/uL (4.8-10.8)
[2022-07-29 07:51] LABS: HEMATOCRIT 31.1 % (36-48); MEAN CORPUSCULAR HEMOGLOBIN 30 pg (27-31); MEAN CORPUSCULAR HGB CONC 34 g/dL (33-37); MEAN CORPUSCULAR VOLUME 87.9 fL (80-94); PLATELET COUNT (AUTO) 189 K/uL (140-450); RED BLOOD CELL COUNT(AUTO) 3.54 MIL/uL (4.20-5.40); RED CELL DISTRIBUTION WIDTH 17.1 % (11.6-13.7)
[2022-07-29 08:08] LABS: ANION GAP 15.4 (8-16); CARBON DIOXIDE 25.3 mmol/L (21-32); CHLORIDE 100 mmol/L (98-107); CREATININE 3.7 mg/dL (0.6-1.3); GLUCOSE 99 mg/dL (74-106); POTASSIUM 3.7 mmol/L (3.5-5.1); SODIUM SERUM 137 mmol/L (136-145); UREA NITROGEN, BLOOD 35 mg/dL (7-18)
[2022-07-29] MEDS: FAMOTIDINE 20 MG/2 ML VIAL IV SCH (08:09)
[2022-07-29] MEDS: carvediloL 6.25 MG TAB PO SCH ×3 (08:09→18:20)
[2022-07-29] MEDS: DOCUSATE 100 MG/10 ML UDC GT SCH (08:09)
[2022-07-29] MEDS: CALCIUM ACETATE 667 MG TAB PO SCH ×3 (08:09→17:50)
[2022-07-29] MEDS: FERROUS SULFATE 300 MG/5 ML UDC GT SCH ×2 (08:09→20:55)
[2022-07-29 08:23] LABS: BASOPHILS % (MANUAL) 0 % (0-2); EOSINOPHILS % (MANUAL) 0 % (0-4); LYMPHOCYTES % (MANUAL) 10 % (20-46); MONOCYTES % (MANUAL) 7 % (5-12)
--- NOTE | 2022-07-29 09:45 | NUR ---
Seen and examined by Dr. Negrete. Dr. Negrete at bedside speaking with Angelica KIRBY).
--- NOTE | 2022-07-29 12:20 | NUR ---
Dr. Hooper at bedside examining pt. JUAN A Dominguez at bedside speaking with Dr. Hooper.
--- NOTE | 2022-07-29 15:00 | NUR ---
Dr. Cotto at bedside speaking with JUAN A.
[2022-07-29] MEDS ORDERED: HYDRAGUARD CREAM TP SCH (15:35)
--- NOTE | 2022-07-29 16:00 | NUR ---
Dr. Mccracken at bedside speaking with Angelica KIRBY). POLST form and code status form signed.
--- NOTE | 2022-07-29 16:30 | NUR ---
Spoke to Angelica regarding current plan of care. Per Angelica, wants to stop dialysis and wants extubation with comfort care tomorrow.
--- NOTE | 2022-07-29 19:15 | NUR ---
Endorsed to business team leader nurse Angelita for continuity of care.
--- NOTE | 2022-07-29 19:30 | NUR ---
RECEIVED PATIENT ON BED; ORALLY INTUBATED AND VENTILATED AT 24% FIO2; LETHARGIC; CARDIASCOPE SHOWS ON SINUS RHYTHM HR 92/MIN; WITH PICC LINE TO RIGHT UPPER ARM, PATENT AND INTACT. WITH HD ACCESS IN SITU TO RIGHT INTERNAL JUGULAR. ABDOMEN IS SOFT, NON TENDER; HYPOACTIVE BOWEL SOUNDS. WITH NEGRETE CATH IN PLACE TO SCANTY WELL CONCENTRATED URINE OUTPUT. RECTAL TUBE IN PLACE.
--- NOTE | 2022-07-29 20:30 | NUR ---
TURNED AND REPOSITIONED PATIENT, ORAL CARE DONE WITH VAP KIT.
[2022-07-30] VITALS (20 sets, daily range): BP systolic 80–170; BP diastolic 45–109
[2022-07-30] MEDS: BLOOD GLUCOSE MONITORING 1 DEV DEV FS SCH ×2 (00:18→06:28)
[2022-07-30] MEDS: ALBUTEROL SULFATE/IPRATROPIU 3 ML SOL IH SCH ×2 (01:46→07:33)
--- NOTE | 2022-07-30 04:00 | NUR ---
MORNING BED BATH DONE; WOUND CARE DONE; PICC LINE DRESSING CHANGED.
[2022-07-30] MEDS: LEVOTHYROXINE 0.025 MG TAB PO SCH (06:18)
[2022-07-30] MEDS: hydrALAZINE 20 MG/ML VIAL IVP PRN ×2 (06:44→08:03)
[2022-07-30] MEDS ORDERED: MORPHINE SULFATE 50 MG in NACL 0.9% 45 ML IV PRN (11:40)
--- NOTE | 2022-07-30 12:10 | NUR ---
DR. BRAXTON ORDER MORPHINE DRIP FOR COMFORT CARE STARTED PROTOCAL.
--- NOTE | 2022-07-30 12:30 | NUR ---
DR. TURCIOS TALK TO FAMILY AT BED SIDE.ORDER RECEIVED,
[2022-07-30] MEDS ORDERED: LORazepam 1 MG TAB ONE (12:31)
[2022-07-30] MEDS ORDERED: LORazepam 2 MG/ML VIAL ONE (12:32)
--- NOTE | 2022-07-30 14:30 | NUR ---
ASK DR. TURCIOS WHEN TO EXTUBATE THE PATIENT, HE SAID WHEN EVER FAMILY WANTED.
[2022-07-30] MEDS ORDERED: LORazepam 2 MG/ML VIAL IVP PRN (15:20)
--- NOTE | 2022-07-30 16:44 | NUR ---
VERBAL REQUEST BY FAMILY AND MD FOR WITHDRAWAL OF VENTILATION - COMFORT CARE - DISCONTINUE VENT
--- NOTE | 2022-07-30 16:45 | NUR ---
PT EXTUBATED MORPHINE IVDRIP @ 8MG/AT THE TIME THE FAMILY LIKE TO HOLD IT LIKE THAT FOR A WHILE WILL TELL WHEN WANT TO INCREASE,
--- NOTE | 2022-07-30 17:30 | NUR ---
PT SLEEPING MOST OF THE TIME MORPHINE DRIP INCREASE PROTOCOL.
--- NOTE | 2022-07-30 18:00 | NUR ---
PT VITAL SIGH GETTIG WEAK HAS NO RESPONSE.
--- NOTE | 2022-07-30 18:45 | NUR ---
MONITOR SHOW [facility] HOUSE SUPP INFORM
--- NOTE | 2022-07-30 18:49 | NUR ---
THE HOUSE SUPP CAME TO [place] PT PASS AWAY,
--- NOTE | 2022-07-30 19:09 | NUR ---
PHONE CALL TO [facility]; SPOKE WITH FARHAT, PER F[facility], IS ELIGIBLE FOR DONATION, "NOT TO MENTION TO FAMILY RE:[facility]", THEY WILL DIRECTLY CONTACT [facility].ALSO OK TO RELEASE THE BODY ONCE ALL PAPER WORKS ARE DONE TO THE MORTUARY. CASE# [id number]
--- NOTE | 2022-07-30 19:30 | NUR ---
GIVE REPORT TO ROSA BENSON,
--- NOTE | 2022-07-30 19:54 | NUR ---
PHONE CALL TO [facility]S OFFICE AFTER SPEAKING WITH [facility].SPOKE WITH DISPATCH JUAN PABLO, SHE SAID [facility] WILL CALL COMPLIANCE ADMINISTRATOR.AWAITING [facility]'S CALL
--- NOTE | 2022-07-30 20:10 | NUR ---
DAUGHTER CAME BACK TO ICU ; (PRECIOUS CARRIZALES) BROUGHT PAPER WORK, WILL BE TAKEN TO [facility]( )
--- NOTE | 2022-07-30 21:50 | NUR ---
PHONE FROM [facility]S OFFICE, SPOKE WITH WAREHOUSE UNLOADER YUSUF HINKLE; QUESTIONS ANSWERED, BODY RELEASED.NO WAREHOUSE UNLOADER'S CASE NUMBER, PER WAREHOUSE UNLOADER TO PUT HER NAME
--- NOTE | 2022-07-30 21:51 | NUR ---
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
--- NOTE | 2022-07-30 22:19 | NUR ---
PHONE CALL FROM [facility].SHE SAID THEY WILL NOT BE PURSUING FOR ORGAN DONATION,BODY CAN BE RELEASED TO MORTUARY OF CHOICE.
--- NOTE | 2022-07-31 01:15 | NUR ---
PHONE CALL TO [facility],SPOKE WITH FLORENTIN, HE SAID THE CHEMICAL PROCESS OPERATOR IS ON THE WAY
--- NOTE | 2022-07-31 01:35 | NUR ---
BODY PICKED UP BY [facility], FLORAL SPECIALIST IS JANET.PHONE CALL PRECIOUS, DAUGHTER AND UPDATED PER HER REQUEST EARLIER
== END 2022-07-31 01:35 | DRG 870 ==
LOC: MED 08:36 → MIC 11:24
PROVIDERS: ADMIT Family Medicine; ATTEND Family Medicine
PROC: 5A1955Z Respiratory Ventilation, Greater than 96 Consecutive Hours (ICD-10-PCS; 2022-07-15)
PROC: 0BH17EZ Insertion of Endotracheal Airway into Trachea, Via Natural or Artificial Opening (ICD-10-PCS; 2022-07-15)
PROC: 5A09357 Assistance with Respiratory Ventilation, Less than 24 Consecutive Hours, Continuous Positive Airway Pressure (ICD-10-PCS; 2022-07-15)
PROC: 02HV33Z Insertion of Infusion Device into Superior Vena Cava, Percutaneous Approach (ICD-10-PCS; principal; 2022-07-16)
PROC: B548ZZA Ultrasonography of Superior Vena Cava, Guidance (ICD-10-PCS; 2022-07-16)
PROC: 5A1D70Z Performance of Urinary Filtration, Intermittent, Less than 6 Hours Per Day (ICD-10-PCS; 2022-07-16)
PROC: 5A1D70Z Performance of Urinary Filtration, Intermittent, Less than 6 Hours Per Day (ICD-10-PCS; 2022-07-17)
PROC: 5A1D70Z Performance of Urinary Filtration, Intermittent, Less than 6 Hours Per Day (ICD-10-PCS; 2022-07-19)
PROC: 30233K1 Transfusion of Nonautologous Frozen Plasma into Peripheral Vein, Percutaneous Approach (ICD-10-PCS; 2022-07-20)
PROC: 5A1D70Z Performance of Urinary Filtration, Intermittent, Less than 6 Hours Per Day (ICD-10-PCS; 2022-07-21)
PROC: 5A1D70Z Performance of Urinary Filtration, Intermittent, Less than 6 Hours Per Day (ICD-10-PCS; 2022-07-23)
PROC: 5A1D70Z Performance of Urinary Filtration, Intermittent, Less than 6 Hours Per Day (ICD-10-PCS; 2022-07-25)
PROC: 5A1D70Z Performance of Urinary Filtration, Intermittent, Less than 6 Hours Per Day (ICD-10-PCS; 2022-07-26)
PROC: 5A1D70Z Performance of Urinary Filtration, Intermittent, Less than 6 Hours Per Day (ICD-10-PCS; 2022-07-27)
PROC: 5A1D70Z Performance of Urinary Filtration, Intermittent, Less than 6 Hours Per Day (ICD-10-PCS; 2022-07-29)
DX: A41.9 Sepsis, unspecified organism (principal); G93.41 Metabolic encephalopathy; J69.0 Pneumonitis due to inhalation of food and vomit; J96.01 Acute respiratory failure with hypoxia; N17.0 Acute kidney failure with tubular necrosis; I13.0 Hypertensive heart and chronic kidney disease with heart failure and stage 1 through stage 4 chronic kidney disease, or unspecified chronic kidney disease; E87.1 Hypo-osmolality and hyponatremia; E87.0 Hyperosmolality and hypernatremia; Z66 Do not resuscitate; Z20.822 Contact with and (suspected) exposure to COVID-19; I50.9 Heart failure, unspecified; E11.22 Type 2 diabetes mellitus with diabetic chronic kidney disease; N18.9 Chronic kidney disease, unspecified; E78.00 Pure hypercholesterolemia, unspecified; E87.70 Fluid overload, unspecified; E87.6 Hypokalemia; E66.01 Morbid (severe) obesity due to excess calories; E03.9 Hypothyroidism, unspecified; D69.6 Thrombocytopenia, unspecified; R65.20 Severe sepsis without septic shock; D63.8 Anemia in other chronic diseases classified elsewhere; E83.39 Other disorders of phosphorus metabolism; Z68.31 Body mass index [BMI] 31.0-31.9, adult; Z79.4 Long term (current) use of insulin
CPT/HCPCS: 31500; 36415; 36600; 70450; 71045; 74018; 80048; 80053; 82533; 82728; 82803; 82948; 83540; 83605; 83690; 83735; 83880; 84100; 84436; 84443; 84484; 85025; 85610; 86886; 86900; 86901; 87040; 87070; 87081; 87205; 93005; 94002; 94003; 94640; 94660; 96365; 96375; 99285; 99291; J0360; J0461; J0696; J1644; J1815; J1940; J2060; J2250; J2270; J2543; J2704; J2997; J3010; J3430; J3490; J7030; J7060; J8597; P9017; Q0092